=== PATIENT | female | born 1975 | race Caucasian/White ===

== ENCOUNTER 2016-07-29 07:39 | Emergency (ER) | payer SELFPAY ==
[~2016-07-29] VITALS: Ht 162.6 cm; Wt 101.0 kg
[~2016-07-29 07:39] MED LIST: HYDR12.56 PO; LISI-515 PO; NOVO7030P2 SQ
[2016-07-29 07:41] VITALS: BP 135/109; PULSE 123; RESP 18; TEMP 98.4; O2SAT 98
[2016-07-29] MEDS ORDERED: SODIUM CHLOR 0.9% 1000 ML INJ 1,000 ML IV ONE ×2 (07:53→08:23)
[2016-07-29 07:54] VITALS: RESP 17; O2SAT 99
--- NOTE | 2016-07-29 07:57 | PD ---
HPI Chief Complaint: Diabetic Time Seen by Provider: 07:47 Travel History International Travel<30 days: No Contact w/Intl Traveler<30days: No History of Present Illness HPI 40-year-old female arrives because her blood sugar 600 this morning. She was unable to work due to the high blood sugar. She noticed yesterday at about 2 PM her blood sugar was high. She self-administered insulin on 5 different occasions. The lowest blood glucose she obtained was 400. She has had urinary frequency/polyuria, nausea and shortness of breath which she states typically accompanies hyperglycemic episodes. She notes multiple coworkers are sick currently with URI type symptoms. PFSH Past Medical History Hx Anticoagulant Therapy: No Blood Disorders: No Heart Rhythm Problems: No Cardiac Catheterization: No Cardiovascular Problems: Yes High Cholesterol: No Chemotherapy: No Congestive Heart Failure: No Cerebrovascular Accident: No Diabetes: Yes Diminished Hearing: No Gastrointestinal Disorders: No Glaucoma: No Hypertension: Yes Insomnia: Yes Musculoskeletal: No Neurologic: No Psychiatric: No Respiratory: No Immunizations Current: Yes Radiation Therapy: No Sickle Cell Disease: No Thyroid Disease: Yes PNEUMOCCOCAL Vaccine (Year): 2 : 0 Para: 0 Past Surgical History Abdominal Surgery: No AICD: No Arteriovenous Shunt: No Cardiac Surgery: No Coronary Artery Bypass Graft: No Endocrine Surgery: No Eye Surgery: No Genitourinary Surgery: No Gynecologic Surgery: No Joint Replacement: No Neurologic Surgery: No Oral Surgery: Yes Pacemaker: No Thoracic Surgery: No Other Surgery: No Family History Family Hypercholesterolemia: Yes Social History Alcohol Use: No Tobacco Use: No (quit 7 years ago) Substance Use: No Allergies-Medications (Allergen,Severity, Reaction): Coded Allergies: No Known Allergies (Verified , 07/29/16) Reported Meds & Prescriptions Reported Meds & Active Scripts Active Bactrim DS (Sulfamethoxazole-Trimethoprim) 800-160 Mg Tab 1 Tab PO BID Lisinopril 20 Mg Tab 20 Mg PO BID Reported Novolin 70-30 Inj (Insulin Human Isoph/Insulin Regular) 1,000 Unit/10 Ml Vial 25 Units SQ BID Review of Systems Except as stated in HPI: all other systems reviewed are Neg General / Constitutional: No: Fever Physical Exam Narrative GENERAL: 40-year-old female well-nourished well-developed no acute distress SKIN: Focused skin assessment warm/dry. HEAD: Atraumatic. Normocephalic. EYES: Pupils equal and round. No scleral icterus. No injection or drainage. ENT: No nasal bleeding or discharge. Mucous membranes pink and moist. NECK: Trachea midline. No JVD. CARDIOVASCULAR: Tachycardia. Regular rhythm. RESPIRATORY: No accessory muscle use. Clear to auscultation. Breath sounds equal bilaterally. GASTROINTESTINAL: Large abdominal habitus. No focus of tenderness. MUSCULOSKELETAL: No obvious deformities. No clubbing. No cyanosis. No edema. NEUROLOGICAL: Awake and alert. No obvious cranial nerve deficits. Motor grossly within normal limits. Normal speech. PSYCHIATRIC: Appropriate mood and affect; insight and judgment normal. Data Data Last Documented VS Vital Signs Date Time Temp Pulse Resp B/P Pulse Ox O2 Delivery O2 Flow Rate FiO2 07/29/16 09:11 99 17 200/95 99 Room Air 07/29/16 07:41 98.4 Tachycardia noted Orders Complete Blood Count With Diff (07/29/16 07:53) Comprehensive Metabolic Panel (07/29/16 07:53) Beta Hydroxybutyrate (Acetone) (07/29/16 07:53) Urinalysis - C+S If Indicated (07/29/16 07:53) Blood Glucose (07/29/16 07:53) Blood Glucose (07/29/16 08:53) Ecg Monitoring (07/29/16 07:53) Iv Access Insert/Monitor (07/29/16 07:53) Oximetry (07/29/16 07:53) NPO (07/29/16 07:53) Sodium Chlor 0.9% 1000 Ml Inj (Ns 1000 M (07/29/16 07:53) Sodium Chlor 0.9% 1000 Ml Inj (Ns 1000 M (07/29/16 08:23) Sodium Chloride 0.9% Flush (Ns Flush) (07/29/16 08:00) Blood Glucose (07/29/16 07:53) Urine Culture (07/29/16 09:05) Potassium Chloride (Kcl) (07/29/16 10:00) Sulfamet-Trimeth Ds 800-160 Mg (Bactrim (07/29/16 10:00) Labs Laboratory Tests Test 07/29/16 07/29/16 08:00 09:05 White Blood Count 11.2 TH/MM3 Red Blood Count 5.45 MIL/MM3 Hemoglobin 16.2 GM/DL Hematocrit 46.3 % Mean Corpuscular Volume 85.0 FL Mean Corpuscular Hemoglobin 29.7 PG Mean Corpuscular Hemoglobin 34.9 % Concent Red Cell Distribution Width 13.7 % Platelet Count 241 TH/MM3 Mean Platelet Volume 10.8 FL Neutrophils (%) (Auto) 75.1 % Lymphocytes (%) (Auto) 16.3 % Monocytes (%) (Auto) 4.8 % Eosinophils (%) (Auto) 2.9 % Basophils (%) (Auto) 0.9 % Neutrophils # (Auto) 8.4 TH/MM3 Lymphocytes # (Auto) 1.8 TH/MM3 Monocytes # (Auto) 0.5 TH/MM3 Eosinophils # (Auto) 0.3 TH/MM3 Basophils # (Auto) 0.1 TH/MM3 CBC Comment DIFF FINAL Differential Comment Sodium Level 136 MEQ/L Potassium Level 3.3 MEQ/L Chloride Level 99 MEQ/L Carbon Dioxide Level 25.1 MEQ/L Anion Gap 12 MEQ/L Blood Urea Nitrogen 4 MG/DL Creatinine 0.69 MG/DL Estimat Glomerular Filtration 94 ML/MIN Rate Random Glucose 359 MG/DL Calcium Level 8.1 MG/DL Total Bilirubin 0.4 MG/DL Aspartate Amino Transf 8 U/L (AST/SGOT) Alanine Aminotransferase 18 U/L (ALT/SGPT) Alkaline Phosphatase 73 U/L Total Protein 6.9 GM/DL Albumin 3.4 GM/DL B-Hydroxybutyrate 0.40 MMOL/L Urine Color LIGHT-YELLOW Urine Turbidity HAZY Urine pH 6.5 Urine Specific [place] 1.009 Urine Protein TRACE mg/dL Urine Glucose (UA) 1000 mg/dL Urine Ketones TRACE mg/dL Urine Occult Blood NEG Urine Nitrite NEG Urine Bilirubin NEG Urine Urobilinogen LESS THAN 2.0 MG/DL Urine Leukocyte Esterase LARGE Urine RBC 2 /hpf Urine WBC 15 /hpf Urine Squamous Epithelial 4 /hpf Cells Urine Bacteria RARE /hpf Urine Yeast (Budding) FEW Microscopic Urinalysis Comment CULTURE INDICATED MDM Medical Decision Making Medical Screen Exam Complete: Yes Emergency Medical Condition: Yes Medical Record Reviewed: Yes Differential Diagnosis DKA, electrolyte imbalance, dehydration, urinary tract infection, hyperglycemia Narrative Course CBC & BMP Diagram 07/29/16 08:00 LFTs normal Beta hydroxybutyrate 0.4 UA: UTI present Blood sugar has improved to about 295. Patient states her blood sugar typically runs about 200. The patient has a UTI and we will provide antibiotics for that. Diagnosis Primary Impression: Hyperglycemia Additional Impressions: UTI (urinary tract infection) Qualified Code: N30.00 - Acute cystitis without hematuria Hypokalemia Referrals: Primary Care Physician Additional Instructions: You have a choice when it comes to health care, and we are glad that you chose [facility]. Hopefully, we have met your expectations on today's visit. You are welcome to return to [facility] at any time, as we are committed to meeting the health care needs of our community. Med/Other Pt SpecificInfo: Prescription(s) given Scripts Sulfamethoxazole-Trimethoprim (Bactrim DS)800-160 Mg Tab1 Tab PO BID #14 TAB Ref 0 Prov:Dillon Torres MD 07/29/16 Disposition: 01 DISCHARGE HOME Condition: Stable Dillon Torres MD Jul 29, 2016 07:57
[2016-07-29] MEDS ORDERED: SODIUM CHLORIDE 0.9% FLUSH 10 ML FLUSH IVF PRN (08:00)
[2016-07-29 08:25] LABS: AUTOMATED NEUTROPHIL # 8.4 TH/MM3 (1.8-7.7); BASOPHIL # 0.1 TH/MM3 (0-0.2); BASOPHIL % 0.9 % (0.0-2.0); EOSINOPHIL # 0.3 TH/MM3 (0-0.4); EOSINOPHIL % 2.9 % (0.0-4.0); HEMATOCRIT 46.3 % (35.0-46.0); HEMO FLAGS DIFF FINAL; LYMPH % 16.3 % (9.0-44.0); LYMPHOCYTE # 1.8 TH/MM3 (1.0-4.8); MEAN CORPUSCULAR HEMOGLOBIN 29.7 PG (27.0-34.0); MEAN CORPUSCULAR HGB CONC 34.9 % (32.0-36.0); MONO % 4.8 % (0.0-8.0); NEUT % 75.1 % (16.0-70.0); PLATELET COUNT 241 TH/MM3 (150-450); RED BLOOD COUNT 5.45 MIL/MM3 (4.00-5.30); RED CELL DISTRIBUTION WIDTH 13.7 % (11.6-17.2); WHITE BLOOD COUNT 11.2 TH/MM3 (4.0-11.0)
[2016-07-29 09:05] LABS: ANION GAP 12 MEQ/L (5-15); AST (GOT) 8 U/L (15-37); BICARBONATE 25.1 MEQ/L (21.0-32.0); BLOOD UREA NITROGEN 4 MG/DL (7-18); CHLORIDE 99 MEQ/L (98-107); GLOMERULAR FILTRATION RATE 94 ML/MIN (>89); POTASSIUM 3.3 MEQ/L (3.5-5.1); SODIUM (NA) 136 MEQ/L (136-145)
[2016-07-29 09:08] LABS: ALKALINE PHOSPHATASE 73 U/L (45-117); ALT (GPT) 18 U/L (10-53); TOTAL BILIRUBIN ADULT 0.4 MG/DL (0.2-1.0)
[2016-07-29 09:11] VITALS: BP 200/95; PULSE 99; RESP 17; O2SAT 99
[2016-07-29 09:39] LABS: BACTERIA, URINE RARE /hpf; BLOOD, URINE NEG (NEG); COMMENT (UR) CULTURE INDICATED; CULTURE IF INDICATED CULTURE INDICATED; GLUCOSE,URINE 1000 mg/dL (NEG); KETONE, URINE TRACE mg/dL (NEG); NITRITE,URINE NEG (NEG); PH, URINE 6.5 (5.0-8.5); SQUAMOUS EPITHELIAL CELL URINE 4 /hpf (0-5); URINE COLOR LIGHT-YELLOW (YELLW/STRAW)
[2016-07-29] MEDS ORDERED: BACT800T5 PO (09:47)
[2016-07-29 10:00] VITALS: BP 150/81; TEMP 97.8
[2016-07-29] MEDS ORDERED: POTASSIUM CHLORIDE 20 MEQ CONTROLLED RELEASE TAB PO ONE (10:00)
[2016-07-29] MEDS ORDERED: SULFAMETHOXAZOLE-TRIMETHOPRIM DS 800-160 MG TAB PO ONE (10:00)
== END 2016-07-29 10:20 | disposition home or self-care (01) ==
LOC: NEPC 07:39
DX: E11.65 Type 2 diabetes mellitus with hyperglycemia (principal); N30.00 Acute cystitis without hematuria; E87.6 Hypokalemia; R11.0 Nausea; R06.02 Shortness of breath; I10 Essential (primary) hypertension; Z79.4 Long term (current) use of insulin; Z87.891 Personal history of nicotine dependence; Z86.79 Personal history of other diseases of the circulatory system
CPT/HCPCS: 80053; 81001; 82010; 85025; 87086; 96360; 96361; 99284; J7030

== ENCOUNTER 2016-09-05 16:43 | Observation (INO) | payer SELFPAY ==
[2016-09-05] VITALS (9 sets, daily range): BP systolic 132–240; BP diastolic 63–130; PULSE 94–115; RESP 16–20; TEMP 98–98.7; O2SAT 95–100
[~2016-09-05] VITALS: Ht 162.6 cm; Wt 100.0 kg
[~2016-09-05 16:43] MED LIST changes: +BACT800T5 PO; -HYDR12.56 PO
[2016-09-05] MEDS ORDERED: ASPIRIN 81 MG CHEW TAB PO ONE (19:15)
[2016-09-05] MEDS ORDERED: SODIUM CHLORIDE 0.9% FLUSH 10 ML FLUSH IVF PRN (19:15)
--- NOTE | 2016-09-05 19:32 | RADRPT ---
EXAM DATE/TIME: 09/05/2016 19:30 [facility] COMPARISON: CHEST PA & LAT, April 10, 2015, 15:46. INDICATIONS : Chest pain. MEDICAL HISTORY : Cardiovascular disease. Hypertension. Diabetes mellitus type 2. SURGICAL HISTORY : None. ENCOUNTER: Initial ACUITY: 1 day PAIN SCORE: 6/10 LOCATION: Bilateral chest FINDINGS: PA and lateral views of the chest demonstrate the lungs to be symmetrically aerated without evidence of mass, infiltrate or effusion. The cardiomediastinal contours are unremarkable. Osseous structure s are intact. CONCLUSION: No acute disease. Dino Alegria MD on September 05, 2016 at 19:29 Board Certified Radiologist. This report was verified electronically.
[2016-09-05 19:39] LABS: AUTOMATED NEUTROPHIL # 8.3 TH/MM3 (1.8-7.7); BASOPHIL # 0.1 TH/MM3 (0-0.2); BASOPHIL % 0.7 % (0.0-2.0); EOSINOPHIL # 0.4 TH/MM3 (0-0.4); EOSINOPHIL % 3.3 % (0.0-4.0); HEMATOCRIT 45.8 % (35.0-46.0); HEMO FLAGS DIFF FINAL; LYMPH % 27.9 % (9.0-44.0); LYMPHOCYTE # 3.7 TH/MM3 (1.0-4.8); MEAN CORPUSCULAR HEMOGLOBIN 29.9 PG (27.0-34.0); MEAN CORPUSCULAR HGB CONC 35.1 % (32.0-36.0); MONO % 5.6 % (0.0-8.0); NEUT % 62.5 % (16.0-70.0); PLATELET COUNT 302 TH/MM3 (150-450); RED BLOOD COUNT 5.39 MIL/MM3 (4.00-5.30); RED CELL DISTRIBUTION WIDTH 13.3 % (11.6-17.2); WHITE BLOOD COUNT 13.3 TH/MM3 (4.0-11.0)
[2016-09-05 19:56] LABS: APTT (PATIENT) 23.4 SEC (24.3-30.1); PROTHROMBIN TIME - PATIENT 10.5 SEC (9.8-11.6)
[2016-09-05] MEDS: NITROGLYCERIN 0.4 MG SL 25 TABS/BTL SL SCH ×3 (20:09→20:31)
[2016-09-05 20:14] LABS: ALKALINE PHOSPHATASE 78 U/L (45-117); ALT (GPT) 20 U/L (10-53); ANION GAP 10 MEQ/L (5-15); AST (GOT) 14 U/L (15-37); BICARBONATE 30.7 MEQ/L (21.0-32.0); BLOOD UREA NITROGEN 5 MG/DL (7-18); CHLORIDE 95 MEQ/L (98-107); GLOMERULAR FILTRATION RATE 115 ML/MIN (>89); MAGNESIUM 1.7 MG/DL (1.5-2.5); SODIUM (NA) 136 MEQ/L (136-145); TOTAL BILIRUBIN ADULT 0.6 MG/DL (0.2-1.0)
[2016-09-05 20:15] LABS: CREATINE KINASE 49 U/L (26-192)
[2016-09-05 20:16] LABS: POTASSIUM 2.6 MEQ/L (3.5-5.1)
[2016-09-05] MEDS ORDERED: METOPROLOL TARTRATE 5 MG/5 ML VIAL IV PUSH STA (20:27)
[2016-09-05] MEDS ORDERED: POTASSIUM CHLOR 10 MEQ PREMIX 100 ML IV ONE (20:30)
[2016-09-05] MEDS ORDERED: POTASSIUM CHLORIDE 10 MEQ CONTROLLED RELEASE TAB PO ONE (20:30)
--- NOTE | 2016-09-05 20:45 | PD ---
HPI Chief Complaint: Chest Pain Time Seen by Provider: 19:02 Travel History International Travel<30 days: No Contact w/Intl Traveler<30days: No Traveled to known affect area: No History of Present Illness HPI Patient is a 40 year old female who comes in complaining of chest pain. She says it started last night and she feels like someone is squeezing her chest. She says her mother suggested she take an aspirin last night, so she did and went to sleep. When she woke up this morning, the pain was back. She denies any cough or cold. She says the pain is in the middle of her chest. She denies any SOB. She denies nausea or vomiting. She denies any leg swelling or calf pain. PFSH Past Medical History Hx Anticoagulant Therapy: No Blood Disorders: No Heart Rhythm Problems: No Cardiac Catheterization: No Cardiovascular Problems: Yes (HTN) High Cholesterol: No Chemotherapy: No Congestive Heart Failure: No Cerebrovascular Accident: No Diabetes: Yes Patient Takes Glucophage: No Diminished Hearing: No Gastrointestinal Disorders: No Glaucoma: No Hypertension: Yes Insomnia: Yes Musculoskeletal: No Neurologic: No Psychiatric: No Respiratory: No Immunizations Current: Yes Radiation Therapy: No Sickle Cell Disease: No Thyroid Disease: Yes PNEUMOCCOCAL Vaccine (Year): 2 ?: Not : 0 Para: 0 Past Surgical History Abdominal Surgery: No AICD: No Arteriovenous Shunt: No Cardiac Surgery: No Coronary Artery Bypass Graft: No Endocrine Surgery: No Eye Surgery: No Genitourinary Surgery: No Gynecologic Surgery: No Joint Replacement: No Neurologic Surgery: No Oral Surgery: Yes Pacemaker: No Thoracic Surgery: No Other Surgery: No Family History Family Myocardial Infarction: Yes (Dad) Family Hypercholesterolemia: Yes Social History Alcohol Use: No Tobacco Use: No (quit 7 years ago) Substance Use: No Allergies-Medications (Allergen,Severity, Reaction): Coded Allergies: No Known Allergies (Verified , 09/05/16) Reported Meds & Prescriptions Reported Meds & Active Scripts Active Bactrim DS (Sulfamethoxazole-Trimethoprim) 800-160 Mg Tab 1 Tab PO BID Lisinopril 20 Mg Tab 20 Mg PO BID Reported Novolin 70-30 Inj (Insulin Human Isoph/Insulin Regular) 1,000 Unit/10 Ml Vial 25 Units SQ BID Review of Systems Except as stated in HPI: all other systems reviewed are Neg General / Constitutional: No: Fever HENT: No: Headaches, Lightheadedness Cardiovascular: Positive: Chest Pain or Discomfort Respiratory: No: Cough, Shortness of Breath Gastrointestinal: No: Nausea, Vomiting Musculoskeletal: No: Edema, Pain Neurologic: No: Weakness, Dizziness Physical Exam Narrative GENERAL: Awake and alert, in no acute distress. SKIN: Focused skin assessment warm/dry. HEAD: Atraumatic. Normocephalic. EYES: Pupils equal and round. No scleral icterus. ENT: Mucous membranes pink and moist. NECK: Trachea midline. No JVD. CARDIOVASCULAR: Regular rate and rhythm. No murmur appreciated. RESPIRATORY: No accessory muscle use. Clear to auscultation. Breath sounds equal bilaterally. GASTROINTESTINAL: Abdomen soft, non-tender, nondistended. MUSCULOSKELETAL: No obvious deformities. No clubbing. No cyanosis. No edema. NEUROLOGICAL: Awake and alert. No obvious cranial nerve deficits. Motor grossly within normal limits. Normal speech. PSYCHIATRIC: Appropriate mood and affect; insight and judgment normal. Data Data Last Documented VS Vital Signs Date Time Temp Pulse Resp B/P Pulse Ox O2 Delivery O2 Flow Rate FiO2 09/05/16 20:30 107 20 190/87 96 Room Air 09/05/16 16:45 98.7 Orders Electrocardiogram (09/05/16 17:35) Ckmb (Isoenzyme) Profile (09/05/16 19:06) Complete Blood Count With Diff (09/05/16 19:06) Comprehensive Metabolic Panel (09/05/16 19:06) Magnesium (Mg) (09/05/16 19:06) Prothrombin Time / Inr (Pt) (09/05/16 19:06) Act Partial Throm Time (Ptt) (09/05/16 19:06) Troponin I (09/05/16 19:06) Ecg Monitoring (09/05/16 19:06) Bilateral Bp Monitoring (09/05/16 19:06) Iv Access Insert/Monitor (09/05/16 19:06) Oximetry (09/05/16 19:06) Oxygen Administration (09/05/16 19:06) Aspirin Chew (Aspirin Chew) (09/05/16 19:15) Sodium Chloride 0.9% Flush (Ns Flush) (09/05/16 19:15) Nitroglycerin Sl (Nitrostat Sl) (09/05/16 19:15) Chest, Pa & Lat (09/05/16 19:06) Ed Urine Pregnancytest Poc (09/05/16 19:06) Potassium Chloride (Kcl) (09/05/16 20:30) Potassium Chlor 10 Meq Premix (Kcl 10 Me (09/05/16 20:30) Metoprolol Tartrate Inj (Lopressor Inj) (09/05/16 20:27) Labs Laboratory Tests Test 09/05/16 19:10 White Blood Count 13.3 TH/MM3 Red Blood Count 5.39 MIL/MM3 Hemoglobin 16.1 GM/DL Hematocrit 45.8 % Mean Corpuscular Volume 85.0 FL Mean Corpuscular Hemoglobin 29.9 PG Mean Corpuscular Hemoglobin 35.1 % Concent Red Cell Distribution Width 13.3 % Platelet Count 302 TH/MM3 Mean Platelet Volume 10.0 FL Neutrophils (%) (Auto) 62.5 % Lymphocytes (%) (Auto) 27.9 % Monocytes (%) (Auto) 5.6 % Eosinophils (%) (Auto) 3.3 % Basophils (%) (Auto) 0.7 % Neutrophils # (Auto) 8.3 TH/MM3 Lymphocytes # (Auto) 3.7 TH/MM3 Monocytes # (Auto) 0.7 TH/MM3 Eosinophils # (Auto) 0.4 TH/MM3 Basophils # (Auto) 0.1 TH/MM3 CBC Comment DIFF FINAL Differential Comment Prothrombin Time 10.5 SEC Prothromb Time International 1.0 RATIO Ratio Activated Partial 23.4 SEC Thromboplast Time Sodium Level 136 MEQ/L Potassium Level 2.6 MEQ/L Chloride Level 95 MEQ/L Carbon Dioxide Level 30.7 MEQ/L Anion Gap 10 MEQ/L Blood Urea Nitrogen 5 MG/DL Creatinine 0.58 MG/DL Estimat Glomerular Filtration 115 ML/MIN Rate Random Glucose 274 MG/DL Calcium Level 8.7 MG/DL Magnesium Level 1.7 MG/DL Total Bilirubin 0.6 MG/DL Aspartate Amino Transf 14 U/L (AST/SGOT) Alanine Aminotransferase 20 U/L (ALT/SGPT) Alkaline Phosphatase 78 U/L Total Creatine Kinase 49 U/L Troponin I LESS THAN 0.02 NG/ML Total Protein 7.1 GM/DL Albumin 3.4 GM/DL MDM Medical Decision Making Medical Screen Exam Complete: Yes Emergency Medical Condition: Yes Medical Record Reviewed: Yes Interpretation(s) ECG shows sinus tachycardia, no ST elevation or depression. Differential Diagnosis ACS versus NSTEMI versus STEMI versus pneumonia versus pneumothorax Narrative Course Patient is a 40 year old female comes in complaining of chest pain. Exam shows no acute abnormalities. IV established, labs sent. Patient connected to sales coordinator. ECG shows sinus tachycardia, no evidence of STEMI. Labs show a potassium of 2.6, this was replaced. Patient given nitroglycerin with some improvement of her pain. Her blood pressure was elevated, she says she is due for her nighttime dose of lisinopril. Patient given a dose of metoprolol due to tachycardia and elevated blood pressure. We'll place an chest pain center for further management. Chest x-ray shows no acute abnormalities. Diagnosis Primary Impression: Chest pain Qualified Code: R07.9 - Chest pain, unspecified type Admitting Information Admitting Physician Requests: Ana Lemus MD September 05, 2016 20:45
[2016-09-05] MEDS ORDERED: ONDANSETRON HCL 4 MG/2 ML VIAL IV PRN (21:00)
[2016-09-05] MEDS ORDERED: ACETAMINOPHEN 500 MG CPLT PO PRN (21:00)
[2016-09-05] MEDS ORDERED: SODIUM CHLORIDE 0.9% FLUSH 10 ML FLUSH IV FLUSH PRN (21:00)
[2016-09-05] MEDS: SODIUM CHLORIDE 0.9% FLUSH 10 ML FLUSH IV FLUSH SCH (21:52)
[2016-09-05 22:59] LABS: ANION GAP 9 MEQ/L (5-15); BICARBONATE 32.1 MEQ/L (21.0-32.0); BLOOD UREA NITROGEN 6 MG/DL (7-18); CHLORIDE 95 MEQ/L (98-107); GLOMERULAR FILTRATION RATE 89 ML/MIN (>89); SODIUM (NA) 136 MEQ/L (136-145)
[2016-09-05 23:09] LABS: CREATINE KINASE 49 U/L (26-192)
[2016-09-06 02:31] LABS: CREATINE KINASE 46 U/L (26-192)
[2016-09-06 03:10] VITALS: BP 150/80; PULSE 86; RESP 16; O2SAT 96
[2016-09-06] MEDS ORDERED: POTASSIUM CHLORIDE 25 MEQ EFFERVESCENT TAB PO ONE ×2 (06:30→09:00)
[2016-09-06 07:24] VITALS: BP 132/82; PULSE 93; RESP 20; TEMP 98.4; O2SAT 94
[2016-09-06 08:00] VITALS: PULSE 104
[2016-09-06] MEDS: SODIUM CHLORIDE 0.9% FLUSH 10 ML FLUSH IV FLUSH SCH (09:00)
--- NOTE | 2016-09-06 10:38 | HHI.HP ---
HPI Primary Care Physician No Primary Care Physician Chief Complaint Chest pain History of Present Illness This is a 40-year-old female that presents to ED to evaluate chest discomfort. She describes a squeezing a left chest. It began 2 nights ago. She fell sleep with the discomfort and when she woke up yesterday the discomfort was still there. Currently she has no discomfort chest. Has a hard time stating how long it lasted yesterday. She had no associated shortness breath, nausea, or diaphoresis with her symptoms. Denies history of CAD but states she has hypertension diabetes. She was found to be hypokalemic in the ED and was given IV and by mouth potassium replacement. Last evening while in the chest pain center she went into 6 seconds of V. tach. This occurred while she was sleeping. She was asymptomatic at the time. It did not wake her. States that she is not . Denies recent illnesses. She has not been vomiting. There has been no diarrhea. Review of Systems General: Patient denies fevers, chills recent, and recent travel HEENT: Patient denies headache, sore throat, difficulty swallowing. Cardiovascular: Has the chest discomfort as mentioned above. Denies sensation of heart beating rapidly or irregularly. No syncope. Denies diaphoresis. Respiratory: Denies shortness of breath or inspirational chest discomfort. Denies coughing wheezing or hemoptysis. GI: Patient denies nausea, vomiting, diarrhea, abdominal pain, bloody stools. Musculoskeletal: Patient denies joint pain or edema. Denies calf pain or edema. Neurovascular: Patient denies numbness, tingling, weakness in extremities. Denies headache. Endocrine: Denies polyuria and polydipsia. Hematologic: Denies easy bruising. Skin: Denies rash or itching. Past Family Social History Allergies: Coded Allergies: No Known Allergies (Verified , 09/05/16) Past Medical History Hypertension and diabetes. Denies hyperlipidemia and known CAD. Past Surgical History Noncontributory. Reported Medications Reported Meds & Active Scripts Active Lisinopril 20 Mg Tab 20 Mg PO BID Reported Novolin 70-30 Inj (Insulin Human Isoph/Insulin Regular) 1,000 Unit/10 Ml Vial 25 Units SQ BID Active Ordered Medications Current Medications Medications (Trade) Dose Ordered Sig/Betito Route Start Time Stop Time Status Last Admin (NS Flush) 2 ml UNSCH PRN IVF 09/05/16 19:15 09/05/16 20:38 (NS Flush) 2 ml UNSCH PRN IV FLUSH 09/05/16 21:00 (NS Flush) 2 ml BID IV FLUSH 09/05/16 21:00 09/05/16 21:52 (Tylenol) 500 mg Q4H PRN PO 09/05/16 21:00 (Zofran Inj) 4 mg Q6H PRN IV 09/05/16 21:00 Family History States that her father had an SC. Social History Patient quit smoking 7 years ago. Denies alcohol or illicit drugs. Physical Exam Vital Signs Vital Signs Date Time Temp Pulse Resp B/P Pulse Ox O2 Delivery O2 Flow Rate FiO2 09/06/16 07:24 98.4 93 20 132/82 94 09/06/16 03:18 21 09/06/16 03:10 86 16 150/80 96 09/05/16 23:21 98.0 101 17 148/85 98 09/05/16 22:24 94 16 132/63 97 Room Air 09/05/16 20:40 97 155/65 09/05/16 20:30 107 20 190/87 96 Room Air 09/05/16 20:16 194/92 09/05/16 20:10 104 20 195/94 97 Room Air 09/05/16 19:20 20 100 Room Air 09/05/16 19:20 100 Room Air 09/05/16 17:33 115 189/117 96 09/05/16 16:45 98.7 114 20 240/130 95 Room Air Physical Exam GENERAL: This is a well-nourished, well-developed patient, in no apparent distress. Patient speaks in clear complete sentences. Patient is pleasant. HEENT: Head is atraumatic and normocephalic. Neck is supple without lymphadenopathy and trachea is midline. No JVD or carotid bruits. CARDIOVASCULAR: Regular rate and rhythm without murmurs, gallops, or rubs. RESPIRATORY: Clear to auscultation. Breath sounds equal bilaterally. No wheezes , rales, or rhonchi. Chest wall is nontender. No use of accessory muscles. GASTROINTESTINAL: Abdomen is nontender, nondistended. Abdomen soft. No obvious pulsatile mass or bruit. No CVA tenderness. Strong femoral pulses bilaterally. Normal bowel sounds in all quadrants. MUSCULOSKELETAL: Patient is moving upper and lower extremities freely. No calf tenderness or edema, no Homans sign. Strong pulses in upper and lower extremities. NEUROLOGICAL: Patient is alert and oriented. Cranial nerves 2-12 are grossly intact. No focal deficits and speech is clear. SKIN: No rash and turgor is normal. Laboratory Laboratory Tests Test 09/05/16 09/05/16 09/06/16 09/06/16 19:10 22:20 01:20 04:29 White Blood Count 13.3 Red Blood Count 5.39 Hemoglobin 16.1 Hematocrit 45.8 Mean Corpuscular Volume 85.0 Mean Corpuscular Hemoglobin 29.9 Mean Corpuscular Hemoglobin 35.1 Concent Red Cell Distribution Width 13.3 Platelet Count 302 Mean Platelet Volume 10.0 Neutrophils (%) (Auto) 62.5 Lymphocytes (%) (Auto) 27.9 Monocytes (%) (Auto) 5.6 Eosinophils (%) (Auto) 3.3 Basophils (%) (Auto) 0.7 Neutrophils # (Auto) 8.3 Lymphocytes # (Auto) 3.7 Monocytes # (Auto) 0.7 Eosinophils # (Auto) 0.4 Basophils # (Auto) 0.1 CBC Comment DIFF FINAL Differential Comment Prothrombin Time 10.5 Prothromb Time International 1.0 Ratio Activated Partial 23.4 Thromboplast Time Sodium Level 136 136 Potassium Level 2.6 3.0 3.0 Chloride Level 95 95 Carbon Dioxide Level 30.7 32.1 Anion Gap 10 9 Blood Urea Nitrogen 5 6 Creatinine 0.58 0.72 Estimat Glomerular Filtration 115 89 Rate Random Glucose 274 262 Calcium Level 8.7 8.0 Magnesium Level 1.7 Total Bilirubin 0.6 Aspartate Amino Transf 14 (AST/SGOT) Alanine Aminotransferase 20 (ALT/SGPT) Alkaline Phosphatase 78 Total Creatine Kinase 49 49 46 Troponin I LESS THAN 0.02 LESS THAN 0.02 LESS THAN 0.02 Total Protein 7.1 Albumin 3.4 Result Diagram: 09/05/16190909/06/16428 Imaging Last Impressions Chest X-Ray 09/05/161905 Signed Impressions: Service Date/Time: Monday, September 05, 2016 19:30 - CONCLUSION: No acute disease. Dino Alegria MD Course EKGs have sinus rhythm without significant ST segment depressions or elevations. On monitor she had 6 seconds of duration of ventricular tachycardia. She is asymptomatic and did not wake up during the event. Assessment and Plan Assessment and Plan * Chest pain: Patient has had serial cardiac enzymes and EKGs for ruling out purposes. She has been seen by Dr. Galvan of cardiology in the chest pain center. She will have a Lexiscan when her potassium improves. She will be discharged home if her Lexiscan is nonischemic. She should follow-up with local physician and we will work on getting her a blue card to follow-up with Dr. Carrie Terry at the [facility]. * Hypokalemia: Patient was given IV and by mouth supplementation in the ED. She was given another 25 mEq of potassium effervescent 2. Awaiting repeated metabolic panel. * Diabetes: Patient will have sliding scale coverage while the chest pain center and resume her insulin at home. She also should be on statin therapy prophylactically as she is diabetic. She should discuss with local physician. * Hypertension: Continue current medication. * Nonsustained ventricular tachycardia: This may be related to electrolyte imbalance also patient could have sleep apnea. She should have this evaluated on an outpatient basis. Patient is stable this time. She is agreeable to this plan. Sunil Ruff September 06, 2016 10:38
[2016-09-06 11:11] VITALS: BP 129/69; PULSE 90; RESP 20; TEMP 98.7; O2SAT 95
[2016-09-06 11:27] LABS: BICARBONATE 31.9 MEQ/L (21.0-32.0); POTASSIUM 3.6 MEQ/L (3.5-5.1)
[2016-09-06] MEDS ORDERED: REGADENOSON INJ 0.4 MG/5 ML SYR ONE (13:29)
[2016-09-06 14:35] VITALS: BP 135/90; PULSE 102; RESP 20; TEMP 98.1; O2SAT 96
--- NOTE | 2016-09-06 15:21 | RADRPT ---
EXAM DATE/TIME: 09/06/2016 12:46 [facility] COMPARISON: MYOCARDIAL PERF PHARM SPECT, GATED W/EF, January 14, 2015, 13:10. INDICATIONS : Substernal chest pain with dyspnea. Angina. DOSE: 34.8 mCi Tc99m Myoview at stress. 11.0 mCi Tc99m Myoview at rest. 0.4 mg Lexiscan STRESS SYMPTOMS: Heart racing. EJECTION FRACTION: 50% MEDICAL HISTORY : Hypertension. Diabetes mellitus type 2. SURGICAL HISTORY : None. ENCOUNTER: Initial ACUITY: 1 day PAIN SCALE: 5/10 LOCATION: Substernal chest TECHNIQUE: The patient underwent pharmacologic stress with infusion of prescribed dose. Continuous ECG tracing was monitored during stress. Gated SPECT imaging was performed after stress and conventional SPECT i maging was performed at rest. The examination was performed on a SPECT/CT scanner, both attenuation and non-corrected datasets were reviewed. FINDINGS: DISTRIBUTION: The maximum perfused segment at stress is in the anterior wall. PERFUSION STUDY: The pattern of perfusion at stress is within normal limits. GATED STUDY: There is intact wall motion and thickening without hypokinetic or dyskinetic segments. CONCLUSION: 1. Unremarkable myocardial perfusion scan. RISK CATEGORY: Low (<1% Annual Mortality Rate) Stevan Howard MD on September 06, 2016 at 15:18 Board Certified Radiologist. This report was verified electronically.
--- NOTE | 2016-09-06 15:37 | HHI.DCPOC ---
Discharge Care Plan Diagnosis: (1) Chest pain (2) Hypokalemia (3) V-tach (4) Hypertension (5) DM (diabetes mellitus) Goals to Promote Your Health * To prevent worsening of your condition and complications * To maintain your health at the optimal level Directions to Meet Your Goals Take your medications as prescribed Follow your dietary instruction Follow activity as directed Keep your appointments as scheduled Take your immunizations and boosters as scheduled If your symptoms worsen call your PCP, if no PCP go to Urgent Care Center or Emergency Room Smoking is Dangerous to Your Health. Avoid second hand smoke Call the 24-hour hour crisis hotline for domestic abuse at Sunil Ruff September 06, 2016 15:36
--- NOTE | 2016-09-06 17:21 | TR ---
Date Performed: 09/06/2016 Time Performed: 13:36:07 DOCTOR: Serenity Galvan DRUG LIST: CLINICAL HISTORY: REASON FOR TEST: REASON FOR ENDING: OBSERVATION: CONCLUSION: Lexiscan stress test was performed under standard four minute protocol. Radionuclid e was injected one minute prior to ending the test. No electrocardiographic abormalities were present to suggest ischemia. Nuclear imaging and interpretation are pending. COMMENTS:
--- NOTE | 2016-09-06 17:24 | EKG ---
Date Performed: 09/06/2016 Time Performed: 03:11:20 PTAGE: 40 years EKG: Sinus rhythm NORMAL ECG Since PREVIOUS TRACING , no significant change noted DOCTOR: Serenity Galvan Interpretating Date/Time 09/06/2016 17:23:51
--- NOTE | 2016-09-06 17:24 | EKG ---
Date Performed: 09/06/2016 Time Performed: 01:34:24 PTAGE: 40 years EKG: Sinus rhythm POSSIBLE LEFT ATRIAL ENLARGEMENT BORDERLINE ECG Since PREVIOUS TRACING , no significant change noted PREVIOUS TRACIN09/05/2016 21.54 DOCTOR: Serenity Galvan Interpretating Date/Time 09/06/2016 17:24:12
--- NOTE | 2016-09-06 17:27 | EKG ---
Date Performed: 09/05/2016 Time Performed: 21:54:45 PTAGE: 40 years EKG: Sinus rhythm NORMAL ECG Since PREVIOUS TRACING , no significant change noted PREVIOUS TRACIN09/05/2016 17.41 DOCTOR: Serenity Galvan Interpretating Date/Time 09/06/2016 17:26:25
--- NOTE | 2016-09-06 17:32 | EKG ---
Date Performed: 09/05/2016 Time Performed: 17:41:26 PTAGE: 40 years EKG: SINUS TACHYCARDIA ABNORMAL RHYTHM ECG Since PREVIOUS TRACING , no significant change noted PREVIOUS TRACIN03/11/2016 14.56 DOCTOR: Serenity Galvan Interpretating Date/Time 09/06/2016 17:30:46
== END 2016-09-06 16:26 | disposition home or self-care (01) ==
LOC: NEPC 16:43 → NEDA 20:56 → NEPHCDU 23:04
PROVIDERS: ADMIT Internal Medicine Cardiovascular Disease; ATTEND Internal Medicine Cardiovascular Disease
DX: R07.89 Other chest pain (principal); I47.2 Ventricular tachycardia; E87.6 Hypokalemia; I10 Essential (primary) hypertension; E11.9 Type 2 diabetes mellitus without complications; E07.9 Disorder of thyroid, unspecified; Z79.4 Long term (current) use of insulin; Z87.891 Personal history of nicotine dependence
CPT/HCPCS: 71020; 78452; 80048; 80053; 82550; 83735; 84132; 84484; 84703; 85025; 85610; 85730; 93005; 93017; 96374; 99285; A9502; G0378; J2785; J3480

== ENCOUNTER 2017-02-05 20:08 | Emergency (ER) | payer SELFPAY ==
[~2017-02-05] VITALS: Ht 162.6 cm; Wt 100.0 kg
[~2017-02-05 20:08] MED LIST changes: -BACT800T5 PO
[2017-02-05 20:10] VITALS: BP 246/115; PULSE 111; RESP 16; TEMP 99.3; O2SAT 98
[2017-02-05] MEDS ORDERED: hydrALAZINE HCL 20 MG/ML VIAL IV PUSH ONE (20:45)
[2017-02-05] MEDS ORDERED: SODIUM CHLORIDE 0.9% FLUSH 10 ML FLUSH IVF PRN (20:45)
[2017-02-05] MEDS ORDERED: ONDANSETRON HCL 4 MG/2 ML VIAL IVP ONE (20:45)
[2017-02-05] MEDS ORDERED: MORPHINE SULFATE 4 MG/ML INJ IV PUSH ONE (20:45)
--- NOTE | 2017-02-05 20:48 | PD ---
HPI Chief Complaint: Hypertension Time Seen by Provider: 20:40 Travel History International Travel<30 days: No Contact w/Intl Traveler<30days: No Traveled to known affect area: No History of Present Illness HPI FOR PAST 2-3 DAYS HAS HAD GENERALIZED CM, 7/10, SOME ASSOC NAUSEA, AND HAS NOTED ELEVATED BP, WITH SYSTOLIC IN THE 200'S LIKE TODAY. PATIENT DENIES ANY LATERALIZING WEAKNESS, VISUAL DISTURBANCES OR PARESTHESIAS. ALL:NONE PMHX: DM AND HTN (ONLY ON NOVOLIN AND LISINOPRIL) NO PSHX PFSH Past Medical History Hx Anticoagulant Therapy: No Blood Disorders: No Heart Rhythm Problems: No Cardiac Catheterization: No Cardiovascular Problems: Yes High Cholesterol: No Chemotherapy: No Congestive Heart Failure: No Cerebrovascular Accident: No Diabetes: Yes Diminished Hearing: No Gastrointestinal Disorders: No Glaucoma: No Hypertension: Yes Insomnia: Yes Musculoskeletal: No Neurologic: No Psychiatric: No Respiratory: No Immunizations Current: Yes Radiation Therapy: No Sickle Cell Disease: No Thyroid Disease: Yes PNEUMOCCOCAL Vaccine (Year): 2 : 0 Para: 0 Past Surgical History Abdominal Surgery: No AICD: No Arteriovenous Shunt: No Cardiac Surgery: No Coronary Artery Bypass Graft: No Endocrine Surgery: No Eye Surgery: No Genitourinary Surgery: No Gynecologic Surgery: No Joint Replacement: No Neurologic Surgery: No Oral Surgery: Yes Pacemaker: No Thoracic Surgery: No Other Surgery: No Family History Family Hypercholesterolemia: Yes Social History Alcohol Use: No Tobacco Use: No (quit 7 years ago) Substance Use: No Allergies-Medications (Allergen,Severity, Reaction): Coded Allergies: No Known Allergies (Verified , 02/05/17) Reported Meds & Prescriptions Reported Meds & Active Scripts Active Lisinopril 20 Mg Tab 20 Mg PO BID Reported Novolin 70-30 Inj (Insulin Human Isoph/Insulin Regular) 1,000 Unit/10 Ml Vial 25 Units SQ BID Review of Systems Except as stated in HPI: all other systems reviewed are Neg HENT: Positive: Headaches Physical Exam Narrative GENERAL: SKIN: Warm and dry. HEAD: Atraumatic. Normocephalic. EYES: Pupils equal and round. No scleral icterus. No injection or drainage. ENT: No nasal bleeding or discharge. Mucous membranes pink and moist. NECK: Trachea midline. No JVD. CARDIOVASCULAR: Regular rate and rhythm. RESPIRATORY: No accessory muscle use. Clear to auscultation. Breath sounds equal bilaterally. GASTROINTESTINAL: Abdomen soft, non-tender, nondistended. MUSCULOSKELETAL: Extremities without clubbing, cyanosis, or edema. No obvious deformities. NEUROLOGICAL: Awake and alert. No obvious cranial nerve deficits. Motor grossly within normal limits. Five out of 5 muscle strength in the arms and legs. Normal speech. PSYCHIATRIC: Appropriate mood and affect; insight and judgment normal. Data Data Last Documented VS Vital Signs Date Time Temp Pulse Resp B/P (MAP) Pulse Ox O2 Delivery O2 Flow Rate FiO2 02/05/17 21:40 16 02/05/17 21:38 97 02/05/17 20:10 99.3 111 Room Air Orders Orders Complete Blood Count With Diff (02/05/17 20:40) Basic Metabolic Panel (Bmp) (02/05/17 20:40) Ct Brain W/O Iv Contrast(Rout) (02/05/17 20:40) Ecg Monitoring (02/05/17 20:40) Iv Access Insert/Monitor (02/05/17 20:40) Oximetry (02/05/17 20:40) Sodium Chloride 0.9% Flush (Ns Flush) (02/05/17 20:45) Ondansetron Inj (Zofran Inj) (02/05/17 20:45) Hydralazine Inj (Apresoline Inj) (02/05/17 20:45) Morphine Inj (Morphine Inj) (02/05/17 20:45) Urinalysis - C+S If Indicated (02/05/17 20:40) Ed Urine Pregnancytest Poc (02/05/17 20:40) Drug Screen, Random Urine (02/05/17 20:40) Potassium Chloride (Kcl) (02/05/17 22:00) Labs Laboratory Tests Test 02/05/17 21:00 02/05/17 21:05 White Blood Count 11.8 TH/MM3 Red Blood Count 5.45 MIL/MM3 Hemoglobin 16.5 GM/DL Hematocrit 47.5 % Mean Corpuscular Volume 87.2 FL Mean Corpuscular Hemoglobin 30.3 PG Mean Corpuscular Hemoglobin Concent 34.7 % Red Cell Distribution Width 13.5 % Platelet Count 253 TH/MM3 Mean Platelet Volume 11.1 FL Neutrophils (%) (Auto) 60.3 % Lymphocytes (%) (Auto) 29.8 % Monocytes (%) (Auto) 5.6 % Eosinophils (%) (Auto) 3.6 % Basophils (%) (Auto) 0.7 % Neutrophils # (Auto) 7.1 TH/MM3 Lymphocytes # (Auto) 3.5 TH/MM3 Monocytes # (Auto) 0.7 TH/MM3 Eosinophils # (Auto) 0.4 TH/MM3 Basophils # (Auto) 0.1 TH/MM3 CBC Comment DIFF FINAL Differential Comment Blood Urea Nitrogen 5 MG/DL Creatinine 0.75 MG/DL Random Glucose 339 MG/DL Calcium Level 8.9 MG/DL Sodium Level 134 MEQ/L Potassium Level 2.7 MEQ/L Chloride Level 95 MEQ/L Carbon Dioxide Level 22.5 MEQ/L Anion Gap 17 MEQ/L Estimat Glomerular Filtration Rate 85 ML/MIN Urine Color COLORLESS Urine Turbidity CLEAR Urine pH 6.0 Urine Specific [place] 1.008 Urine Protein NEG mg/dL Urine Glucose (UA) 1000 mg/dL Urine Ketones TRACE mg/dL Urine Occult Blood NEG Urine Nitrite NEG Urine Bilirubin NEG Urine Urobilinogen LESS THAN 2.0 MG/DL Urine Leukocyte Esterase NEG Urine RBC 1 /hpf Urine WBC 1 /hpf Urine Squamous Epithelial Cells 1 /hpf Urine Bacteria RARE /hpf Microscopic Urinalysis Comment CULT NOT INDICATED Urine Opiates Screen NEG Urine Barbiturates Screen NEG Urine Amphetamines Screen NEG Urine Benzodiazepines Screen NEG Urine Cocaine Screen NEG Urine Cannabinoids Screen NEG MDM Medical Decision Making Medical Screen Exam Complete: Yes Emergency Medical Condition: Yes Medical Record Reviewed: Yes Differential Diagnosis ICH FROM HYPERTENSIVE EMERGENCY V HYPERTENSIVE ENCEPHALOPATHY V TENSION CM Narrative Course NO E/O UTI, NORMAL ELECTROLYTE EXCEPT FOR HYPERGLYCEMIA AND HYPOKALEMIA WHICH IS DUE TO INSULIN USE. PATIENT'S PAIN FREE, BP IS GREATLY IMPROVING DECREASING TO SBP 177, CT HEAD NEG FOR ICH Critical Care Narrative CRITICAL CARE NOTE: With evaluation of the patient, receipt of radiologic studies, administration of medications, reevaluation the patient and discussion of the patient with the PATIENT AND FAMILY TO CONTROL HER BLOOD PRESSURE, the total critical care time was [30] minutes. Time to perform other separately billable procedures was not included in the critical care time. Diagnosis Primary Impression: HEADACHE Additional Impressions: HYPERTENSIVE URGENCY HYPOKALEMIA Referrals: [facility] FOR FURTHER FOLLOWUP Patient Instructions: General Instructions, Tension Headache (ED) Scripts Hyvohrqakd-Sfzqtuhxwahdv-Exfjsaqs (Fioricet) 50-300-40 Mg Cap 1-2 CAP PO Q6H Y for HEADACHE, #20 CAP 0 Refills Prov: Dennis Roberts MD 02/05/17 Amlodipine (Amlodipine) 5 Mg Tab 5 MG PO DAILY for Blood Pressure Management, #30 TAB 2 Refills Prov: Dennis Roberts MD 02/05/17 Disposition: 01 DISCHARGE HOME Condition: Stable Dennis Roberts MD Feb 05, 2017 20:48
[2017-02-05 21:38] VITALS: O2SAT 97
[2017-02-05 21:40] VITALS: RESP 16
--- NOTE | 2017-02-05 21:42 | RADRPT ---
EXAM DATE/TIME: 02/05/2017 21:07 [facility] COMPARISON: CT BRAIN W/O CONTRAST, March 11, 2016, 15:30. INDICATIONS : Cephalgia with elevated blood pressure. RADIATION DOSE: 37.23 CTDIvol (mGy) MEDICAL HISTORY : Cardiovascular disease. Hypertension. Diabetes mellitus type 2. SURGICAL HISTORY : None. ENCOUNTER: Initial ACUITY: 1 day PAIN SCALE: 3/10 LOCATION: cranial TECHNIQUE: Multiple contiguous axial images were obtained of the head. Using automated exposure control and adj ustment of the mA and/or kV according to patient size, radiation dose was kept as low as reasonably a chievable to obtain optimal diagnostic quality images. DICOM format image data is available electro nically for review and comparison. FINDINGS: CEREBRUM: The ventricles are normal for age. No evidence of midline shift, mass lesion, hemorrhage or acute in farction. No extra-axial fluid collections are seen. POSTERIOR FOSSA: The cerebellum and brainstem are intact. The 4th ventricle is midline. The cerebellopontine angle i s unremarkable. EXTRACRANIAL: The visualized portion of the orbits is intact. SKULL: The calvaria is intact. No evidence of skull fracture. CONCLUSION: No acute disease. Stefan Soriano MD on February 05, 2017 at 21:40 Board Certified Radiologist. This report was verified electronically.
[2017-02-05 21:46] LABS: BICARBONATE 22.5 MEQ/L (21.0-32.0)
[2017-02-05 21:47] LABS: AUTOMATED NEUTROPHIL # 7.1 TH/MM3 (1.8-7.7); BASOPHIL # 0.1 TH/MM3 (0-0.2); BASOPHIL % 0.7 % (0.0-2.0); EOSINOPHIL # 0.4 TH/MM3 (0-0.4); EOSINOPHIL % 3.6 % (0.0-4.0); HEMATOCRIT 47.5 % (35.0-46.0); HEMO FLAGS DIFF FINAL; LYMPH % 29.8 % (9.0-44.0); LYMPHOCYTE # 3.5 TH/MM3 (1.0-4.8); MEAN CELL VOLUME 87.2 FL (80.0-100.0); MEAN CORPUSCULAR HEMOGLOBIN 30.3 PG (27.0-34.0); MEAN CORPUSCULAR HGB CONC 34.7 % (32.0-36.0); MONO % 5.6 % (0.0-8.0); NEUT % 60.3 % (16.0-70.0); PLATELET COUNT 253 TH/MM3 (150-450); POTASSIUM 2.7 MEQ/L (3.5-5.1); RED BLOOD COUNT 5.45 MIL/MM3 (4.00-5.30); RED CELL DISTRIBUTION WIDTH 13.5 % (11.6-17.2); WHITE BLOOD COUNT 11.8 TH/MM3 (4.0-11.0)
[2017-02-05 21:50] LABS: BACTERIA, URINE RARE /hpf; BLOOD, URINE NEG (NEG); COMMENT (UR) CULT NOT INDICATED; CULTURE IF INDICATED CULT NOT INDICATED; GLUCOSE,URINE 1000 mg/dL (NEG); KETONE, URINE TRACE mg/dL (NEG); NITRITE,URINE NEG (NEG); SQUAMOUS EPITHELIAL CELL URINE 1 /hpf (0-5); URINE COLOR COLORLESS (YELLW/STRAW)
[2017-02-05] MEDS ORDERED: POTASSIUM CHLORIDE 10 MEQ CONTROLLED RELEASE TAB PO ONE (22:00)
[2017-02-05] MEDS ORDERED: AMLO5TAB2 PO (23:06)
[2017-02-05] MEDS ORDERED: BUTA1CAP PO (23:06)
[2017-02-05] MEDS ORDERED: POTA-163 PO (23:10)
[2017-02-05 23:22] VITALS: BP 163/74
== END 2017-02-06 00:16 | disposition home or self-care (01) ==
LOC: NEPC 20:08
DX: I16.0 Hypertensive urgency (principal); E87.6 Hypokalemia; R51 Headache; E11.65 Type 2 diabetes mellitus with hyperglycemia; Z79.4 Long term (current) use of insulin; Z79.899 Other long term (current) drug therapy; Z87.891 Personal history of nicotine dependence
CPT/HCPCS: 70450; 80048; 80307; 81001; 84703; 85025; 96374; 96375; 99291; J0360; J2270; J2405

== ENCOUNTER 2017-06-15 08:27 | Emergency (ER) | payer SELFPAY ==
[~2017-06-15] VITALS: Ht 162.6 cm; Wt 90.0 kg
[~2017-06-15 08:27] MED LIST changes: +AMLO5TAB2 PO; +BUTA1CAP PO; +POTA-163 PO
[2017-06-15 08:29] VITALS: BP 202/124; PULSE 143; RESP 18; TEMP 98.3; O2SAT 95
--- NOTE | 2017-06-15 09:16 | PD ---
HPI Chief Complaint: Cold / Flu Symptoms Time Seen by Provider: 09:16 Travel History International Travel<30 days: No Contact w/Intl Traveler<30days: No Traveled to known affect area: No History of Present Illness HPI 41-year-old female came to the emergency room with history of fever, sore throat , body aches, cough, nausea and vomiting since yesterday. She says the entire household has been sick with similar symptoms. She did not receive her flu shot. Patient was tachycardic upon arrival in triage. Her heart rate was in 140s. She is a diabetic and did not take any of her medications this morning when she decided to come to the emergency room. Her blood sugar was 350 bedside. She is awake and answering questions appropriately. Rest of the vital signs are within acceptable limits. [facility] Past Medical History Narrative Medical List of her past medical, surgical, social and family history is reviewed from the nursing note. Hx Anticoagulant Therapy: No Blood Disorders: No Heart Rhythm Problems: No Cardiac Catheterization: No Cardiovascular Problems: Yes High Cholesterol: No Chemotherapy: No Congestive Heart Failure: No Cerebrovascular Accident: No Diabetes: Yes Diminished Hearing: No Gastrointestinal Disorders: No Glaucoma: No Hypertension: Yes Insomnia: Yes Musculoskeletal: No Neurologic: No Psychiatric: No Respiratory: No Immunizations Current: Yes Radiation Therapy: No Sickle Cell Disease: No Thyroid Disease: Yes PNEUMOCCOCAL Vaccine (Year): 2 ?: Not LMP: 05/13/17 : 0 Para: 0 Past Surgical History Abdominal Surgery: No AICD: No Arteriovenous Shunt: No Cardiac Surgery: No Coronary Artery Bypass Graft: No Endocrine Surgery: No Eye Surgery: No Genitourinary Surgery: No Gynecologic Surgery: No Joint Replacement: No Neurologic Surgery: No Oral Surgery: Yes Pacemaker: No Thoracic Surgery: No Other Surgery: No Family History Family Hypercholesterolemia: Yes Social History Alcohol Use: No Tobacco Use: No (quit 7 years ago) Substance Use: No Allergies-Medications (Allergen,Severity, Reaction): Coded Allergies: No Known Allergies (Verified Allergy, Unknown, 06/19/17) Comments No known drug allergies Reported Meds & Prescriptions Reported Meds & Active Scripts Active Amoxicillin 875 Mg Tab 875 Mg PO BID 10 Days Amlodipine (Amlodipine Besylate) 5 Mg Tab 5 Mg PO DAILY Potassium Chloride ER (Potassium Chloride) 20 Meq Tab 20 Meq PO DAILY Fioricet (Hiwhnppouq-Imnwhvteeyhhg-Ebektuox) 50-300-40 Mg Cap 1-2 Cap PO Q6H PRN Amlodipine (Amlodipine Besylate) 5 Mg Tab 5 Mg PO DAILY Lisinopril 20 Mg Tab 20 Mg PO BID Reported Novolin 70-30 Inj (Insulin Human Isoph/Insulin Regular) 1,000 Unit/10 Ml Vial 25 Units SQ BID Narrative Medication List of her allergies reviewed from the nursing note. Review of Systems Except as stated in HPI: all other systems reviewed are Neg General / Constitutional: Positive: Fever, Chills HENT: Positive: Sore Throat Respiratory: Positive: Cough Gastrointestinal: Positive: Nausea, Vomiting Physical Exam Narrative GENERAL: Awake, alert, mild distress SKIN: Focused skin assessment warm/dry. Poor dentition HEAD: Atraumatic. Normocephalic. EYES: Pupils equal and round. No scleral icterus. No injection or drainage. ENT: No nasal bleeding or discharge. Dry mucous membrane, erythematous pharynx NECK: Trachea midline. No JVD. CARDIOVASCULAR: Regular rate and rhythm. No murmur appreciated. RESPIRATORY: No accessory muscle use. Clear to auscultation. Breath sounds equal bilaterally. GASTROINTESTINAL: Abdomen soft, non-tender, nondistended. Hepatic and splenic margins not palpable. MUSCULOSKELETAL: No obvious deformities. No clubbing. No cyanosis. No edema. NEUROLOGICAL: Awake and alert. No obvious cranial nerve deficits. Motor grossly within normal limits. Normal speech. PSYCHIATRIC: Appropriate mood and affect; insight and judgment normal. Data Data Last Documented VS Orders Orders Sepsis Workup Initiated (06/15/17 ) Complete Blood Count With Diff (06/15/17 09:20) Comprehensive Metabolic Panel (06/15/17 09:20) Lactic Acid Sepsis Protocol (06/15/17 09:20) Urinalysis - C+S If Indicated (06/15/17 09:20) Influenzae A/B Antigen (06/15/17 09:20) Blood Culture (06/15/17 09:20) Chest, Single Ap (06/15/17 09:20) Blood Glucose (06/15/17 09:20) Ecg Monitoring (06/15/17 09:20) Iv Access Insert/Monitor (06/15/17 09:20) Oximetry (06/15/17 09:20) Oxygen Administration (06/15/17 09:20) Sodium Chlor 0.9% 1000 Ml Inj (Ns 1000 M (06/15/17 09:20) Sodium Chlor 0.9% 1000 Ml Inj (Ns 1000 M (06/15/17 09:20) Sodium Chlor 0.9% 1000 Ml Inj (Ns 1000 M (06/15/17 09:20) Group A Rapid Strep Screen (06/15/17 09:20) Strep Culture (Group A) (06/15/17 09:25) Blood Glucose (06/15/17 11:33) Urine Culture (06/15/17 12:46) Labs Laboratory Tests Test 06/15/17 09:25 06/15/17 12:46 White Blood Count 16.2 TH/MM3 Red Blood Count 5.61 MIL/MM3 Hemoglobin 16.6 GM/DL Hematocrit 48.8 % Mean Corpuscular Volume 87.1 FL Mean Corpuscular Hemoglobin 29.6 PG Mean Corpuscular Hemoglobin Concent 34.0 % Red Cell Distribution Width 13.7 % Platelet Count 256 TH/MM3 Mean Platelet Volume 10.5 FL Neutrophils (%) (Auto) 76.3 % Lymphocytes (%) (Auto) 15.5 % Monocytes (%) (Auto) 4.6 % Eosinophils (%) (Auto) 2.9 % Basophils (%) (Auto) 0.7 % Neutrophils # (Auto) 12.3 TH/MM3 Lymphocytes # (Auto) 2.5 TH/MM3 Monocytes # (Auto) 0.7 TH/MM3 Eosinophils # (Auto) 0.5 TH/MM3 Basophils # (Auto) 0.1 TH/MM3 CBC Comment DIFF FINAL Differential Comment Blood Urea Nitrogen 5 MG/DL Creatinine 0.53 MG/DL Random Glucose 319 MG/DL Total Protein 7.0 GM/DL Albumin 3.2 GM/DL Calcium Level 8.5 MG/DL Alkaline Phosphatase 87 U/L Aspartate Amino Transf (AST/SGOT) 7 U/L Alanine Aminotransferase (ALT/SGPT) 12 U/L Total Bilirubin 0.4 MG/DL Sodium Level 136 MEQ/L Potassium Level 3.5 MEQ/L Chloride Level 101 MEQ/L Carbon Dioxide Level 28.9 MEQ/L Anion Gap 6 MEQ/L Estimat Glomerular Filtration Rate 127 ML/MIN Lactic Acid Level 1.2 mmol/L Urine Color YELLOW Urine Turbidity HAZY Urine pH 5.5 Urine Specific [place] 1.018 Urine Protein TRACE mg/dL Urine Glucose (UA) 1000 mg/dL Urine Ketones NEG mg/dL Urine Occult Blood NEG Urine Nitrite NEG Urine Bilirubin NEG Urine Urobilinogen LESS THAN 2.0 MG/DL Urine Leukocyte Esterase LARGE Urine RBC 2 /hpf Urine WBC 18 /hpf Urine Squamous Epithelial Cells 10 /hpf Urine Transitional Epithelial Cells <1 /hpf Urine Bacteria RARE /hpf Urine Mucus FEW /lpf Microscopic Urinalysis Comment CATH-CULTURE IND MDM Medical Decision Making Medical Screen Exam Complete: Yes Emergency Medical Condition: Yes Medical Record Reviewed: Yes Differential Diagnosis Influenza, strep throat, UTI, pneumonia, viral illness Narrative Course 12:47 PM patient was approached as a sepsis given her heart rate. She is receiving 3 L of IV fluid bolus. Her blood sugar came down to 270s. Patient does have some leukocytosis but lactic acid is negative. Chest x-rays negative. Rapid strep was negative. Awaiting for UA. I will eventually discharge her home. Patient is not in DKA. Anion gap and bicarbonate is within normal limits. Procedures EKG Prior to Arrival: No Diagnosis Primary Impression: Hyperglycemia Additional Impressions: Dehydration Viral illness Disposition: 01 DISCHARGE HOME Condition: Stable Genny Carl MD Jun 15, 2017 09:16
[2017-06-15 09:18] VITALS: BP 192/94; PULSE 114; RESP 18
[2017-06-15] MEDS ORDERED: SODIUM CHLOR 0.9% 1000 ML INJ 700 ML IV ONE (09:20)
[2017-06-15] MEDS ORDERED: SODIUM CHLOR 0.9% 1000 ML INJ 1,000 ML IV ONE ×2 (09:20)
[2017-06-15 09:24] VITALS: RESP 18; O2SAT 98
[2017-06-15 10:19] LABS: AUTOMATED NEUTROPHIL # 12.3 TH/MM3 (1.8-7.7); BASOPHIL # 0.1 TH/MM3 (0-0.2); BASOPHIL % 0.7 % (0.0-2.0); EOSINOPHIL # 0.5 TH/MM3 (0-0.4); EOSINOPHIL % 2.9 % (0.0-4.0); HEMATOCRIT 48.8 % (35.0-46.0); HEMOGLOBIN 16.6 GM/DL (11.6-15.3); LYMPH % 15.5 % (9.0-44.0); LYMPHOCYTE # 2.5 TH/MM3 (1.0-4.8); MEAN CELL VOLUME 87.1 FL (80.0-100.0); MEAN CORPUSCULAR HEMOGLOBIN 29.6 PG (27.0-34.0); MEAN PLATELET VOLUME 10.5 FL (7.0-11.0); MONO % 4.6 % (0.0-8.0); MONOCYTE # 0.7 TH/MM3 (0-0.9); NEUT % 76.3 % (16.0-70.0); PLATELET COUNT 256 TH/MM3 (150-450); RED BLOOD COUNT 5.61 MIL/MM3 (4.00-5.30); RED CELL DISTRIBUTION WIDTH 13.7 % (11.6-17.2); WHITE BLOOD COUNT 16.2 TH/MM3 (4.0-11.0)
[2017-06-15 10:24] LABS: ALBUMIN 3.2 GM/DL (3.4-5.0); AST (GOT) 7 U/L (15-37); BICARBONATE 28.9 MEQ/L (21.0-32.0); BLOOD UREA NITROGEN 5 MG/DL (7-18); CALCIUM 8.5 MG/DL (8.5-10.1); CHLORIDE 101 MEQ/L (98-107); CREATININE 0.53 MG/DL (0.50-1.00); GLOMERULAR FILTRATION RATE 127 ML/MIN (>89); GLUCOSE,RANDOM 319 MG/DL (74-106); SODIUM (NA) 136 MEQ/L (136-145)
[2017-06-15 10:29] LABS: ALKALINE PHOSPHATASE 87 U/L (45-117); ALT (GPT) 12 U/L (10-53); TOTAL BILIRUBIN ADULT 0.4 MG/DL (0.2-1.0)
--- NOTE | 2017-06-15 10:30 | RADRPT ---
EXAM DATE/TIME: 06/15/2017 09:50 [facility] COMPARISON: CHEST SINGLE AP, January 14, 2015, 4:34. INDICATIONS : Shortness of breath. MEDICAL HISTORY : Diabetes mellitus type II. Hypertension SURGICAL HISTORY : None. ENCOUNTER: Initial ACUITY: 2 days PAIN SCORE: 0/10 LOCATION: Bilateral chest FINDINGS: A single view of the chest demonstrates the lungs to be symmetrically aerated without evidence of mas s, infiltrate or effusion. The cardiomediastinal contours are unremarkable. Osseous structures are intact. CONCLUSION: The lungs are clear. Shantanu Campos MD on June 15, 2017 at 10:28 Board Certified Radiologist. This report was verified electronically.
[2017-06-15 13:13] LABS: BACTERIA, URINE RARE /hpf; BILIRUBIN, URINE NEG (NEG); BLOOD, URINE NEG (NEG); GLUCOSE,URINE 1000 mg/dL (NEG); KETONE, URINE NEG (NEG); MUCUS URINE FEW /lpf (OCC); NITRITE,URINE NEG (NEG); PH, URINE 5.5 (5.0-8.5); SQUAMOUS EPITHELIAL CELL URINE 10 /hpf (0-5); TRANSITIONAL EPI CELLS, URINE <1 /hpf; URINE COLOR YELLOW (YELLW/STRAW); URINE LEUKOCYTE ESTERASE LARGE (NEG)
== END 2017-06-15 13:23 | disposition home or self-care (01) ==
LOC: NEPE 08:27
DX: E11.65 Type 2 diabetes mellitus with hyperglycemia (principal); E86.0 Dehydration; B34.9 Viral infection, unspecified; I10 Essential (primary) hypertension; Z79.4 Long term (current) use of insulin; Z87.891 Personal history of nicotine dependence
CPT/HCPCS: 71045; 80053; 81001; 83605; 85025; 87040; 87081; 87086; 87804; 87880; 96360; 96361; 99284; J7030

== ENCOUNTER 2017-06-19 05:49 | Emergency (ER) | payer SELFPAY ==
[~2017-06-19] VITALS: Ht 162.6 cm; Wt 89.0 kg
[2017-06-19 05:52] VITALS: BP 233/117; PULSE 137; RESP 20; TEMP 98.7; O2SAT 100
--- NOTE | 2017-06-19 06:08 | PD ---
HPI Chief Complaint: ENT Complaint Time Seen by Provider: 06:02 Travel History International Travel<30 days: No Contact w/Intl Traveler<30days: No Traveled to known affect area: No History of Present Illness HPI The patient is a 41 year old female who presents to the [facility] emergency department with a history of sore throat and malaise that began on . She came into the ER and was diagnosed with a viral infection after extensive workup for possible sepsis. She then developed a dry cough since yesterday associated with right ear pain. She put peroxide in the right ear and went to bed, when she woke up this morning, she noticed blood on her pillow from her ear. The pain is improved this morning. On review of systems otherwise, the patient denies having any recent fevers, neck pain, chest pain, shortness of breath, abdominal pain, vomiting, diarrhea, urinary symptoms, or neurologic symptoms. Her PCP: Dr. Merchant in [place]. [facility] Past Medical History Narrative Medical The patient's past medical history is significant for diabetes, hypertension. Hx Anticoagulant Therapy: No Blood Disorders: No Heart Rhythm Problems: No Cardiac Catheterization: No Cardiovascular Problems: Yes High Cholesterol: No Chemotherapy: No Congestive Heart Failure: No Cerebrovascular Accident: No Diabetes: Yes Patient Takes Glucophage: No Diminished Hearing: No Gastrointestinal Disorders: No Glaucoma: No Heparin Induced Thrombocytopen: No Hypertension: Yes Insomnia: Yes Musculoskeletal: No Neurologic: No Psychiatric: No Respiratory: No Immunizations Current: Yes Radiation Therapy: No Sickle Cell Disease: No Thyroid Disease: Yes PNEUMOCCOCAL Vaccine (Year): 2 ?: Not : 0 Para: 0 Past Surgical History Narrative Surgical The patient's past surgical history is significant for none. Abdominal Surgery: No AICD: No Arteriovenous Shunt: No Cardiac Surgery: No Coronary Artery Bypass Graft: No Endocrine Surgery: No Eye Surgery: No Genitourinary Surgery: No Gynecologic Surgery: No Joint Replacement: No Neurologic Surgery: No Oral Surgery: Yes Pacemaker: No Thoracic Surgery: No Other Surgery: No Family History Family Myocardial Infarction: Yes (Dad) Family Hypercholesterolemia: Yes Social History Alcohol Use: No Tobacco Use: No (quit 7 years ago) Substance Use: No Allergies-Medications (Allergen,Severity, Reaction): Coded Allergies: No Known Allergies (Verified Allergy, Unknown, 2/26/18) Reported Meds & Prescriptions Reported Meds & Active Scripts Active Amoxicillin 875 Mg Tab 875 Mg PO BID 10 Days Amlodipine (Amlodipine Besylate) 5 Mg Tab 5 Mg PO DAILY Potassium Chloride ER (Potassium Chloride) 20 Meq Tab 20 Meq PO DAILY Fioricet (Kmzffzfmms-Xkzfgvsxoqqqa-Jiialfea) 50-300-40 Mg Cap 1-2 Cap PO Q6H PRN Amlodipine (Amlodipine Besylate) 5 Mg Tab 5 Mg PO DAILY Lisinopril 20 Mg Tab 20 Mg PO BID Reported Novolin 70-30 Inj (Insulin Human Isoph/Insulin Regular) 1,000 Unit/10 Ml Vial 25 Units SQ BID Review of Systems Except as stated in HPI: all other systems reviewed are Neg General / Constitutional: No: Fever Eyes: No: Visual changes HENT: Positive: Sore Throat, Congestion, Ear Discharge, Earache, No: Headaches , Rhinorrhea, Other Cardiovascular: No: Chest Pain or Discomfort Respiratory: Positive: Cough, No: Shortness of Breath Gastrointestinal: No: Nausea, Vomiting, Diarrhea, Abdominal Pain Genitourinary: No: Dysuria Musculoskeletal: No: Pain Skin: No Rash Neurologic: No: Weakness Psychiatric: No: Depression Endocrine: No: Polydipsia Hematologic/Lymphatic: No: Easy Bruising Physical Exam Narrative General: The patient is a well-developed well-nourished female in no acute distress Head and Neck exam: Head is normocephalic atraumatic. Eyes: EOMI, pupils are equal round and reactive to light. Nose: Midline septum with pink mucous membranes Ears: Tympanic membrane on the right is difficult to visualize due to debris in the canal that is blood tinged. This was removed with an ear curette. The patient is noted to have a tympanic membrane rupture at approximately 9 to 10: 00. Patient has some yellow fluid present posterior to the TM. Mouth: Dentition unremarkable. Moist mucus membranes. Posterior oropharynx is not erythematous. No tonsillar hypertrophy. Uvula midline. Airway patent. Neck: No palpable lymphadenopathy. No nuchal rigidity. No thyromegaly. Cardiovascular: Regular rate and rhythm without murmurs, gallops, or rubs. Lungs: Clear to auscultation bilaterally. No wheezes, rhonchi, or rales. Abdomen: Soft, without tenderness to palpation in all 4 quadrants of the abdomen. No guarding, rebound, or rigidity. Normal bowel sounds are audible. No tenderness on palpation of McBurney's point. Negative Choudhary sign. Extremities: No clubbing, cyanosis, or edema. 2+ pulses in all 4 extremities. Back: No spinous process tenderness to palpation. No costovertebral angle tenderness to palpation. Neurologic Exam: Cranial nerves 2-12 were intact on exam. Strength is 5/5 in all 4 extremities. No sensory deficits noted. Skin Exam: No rash noted. Intact skin that is warm and dry. Data Data Last Documented VS Vital Signs Date Time Temp Pulse Resp B/P (MAP) Pulse Ox O2 Delivery O2 Flow Rate FiO2 06/19/17 07:57 06/19/17 07:50 98 16 97 Room Air 06/19/17 05:52 98.7 Orders Orders Lisinopril (Prinivil) (06/19/17 06:45) Amlodipine (Norvasc) (06/19/17 06:45) Ed Discharge Order (06/19/17 07:22) MDM Medical Decision Making Medical Screen Exam Complete: Yes Emergency Medical Condition: Yes Medical Record Reviewed: Yes Differential Diagnosis Otitis externa, versus tympanic membrane rupture, versus otitis media, versus scratch in the external auditory canal Narrative Course During the course of the patient's emergency department visit, the patient's history, examination, and differential diagnosis were reviewed with the patient. The patient was placed on a director of cardiac cath lab with oximetry and frequent blood pressure monitoring. The patient had an initial blood pressure with a systolic of 233. The patient reports that she did not take her blood pressure medication this morning as she immediately came when she noticed that she had bleeding from her right ear. The patient is asymptomatic with her elevated blood pressure, denying any headache, neck pain, chest pain, shortness of breath. The patient will be given her usual blood pressure medications. Review of the record reveals that the patient was recently in the emergency department and had an extensive workup done at that time to evaluate for possible underlying sepsis which was negative and the patient was discharged home with a diagnosis of a viral illness. Blood cultures 2 from that visit showed no growth. The patient was initially provided Norvasc 5 mg p.o. 1, lisinopril 20 mg p.o. Prior to the medications being provided her blood pressure had already improved to 181/90. Additionally, the patient reports that she ran out of the Norvasc and has not gotten another prescription for it since then. The patient's examination is remarkable for tympanic membrane rupture on the right. The patient will be discharged home with a prescription for antibiotic. The patient was instructed to avoid getting her ear wet. She is instructed to use earplugs when showering. The patient is instructed regarding the importance of following up with an research and development scientist. She is given the name of the near nose and throat specialist on-call, Dr. Camacho today for follow-up. The patient will be discharged home with a prescription for amoxicillin and a refill of her Norvasc. The patient is resting comfortably and feels better, is alert and in no distress. The patient's results and examination findings were discussed with the patient. The repeat examination is unremarkable and benign. The history, exam, diagnostic testing, and current condition do not suggest any significant pathology to warrant further testing, continued ED treatment, admission, or surgical evaluation at this point. The vital signs have been stable. The patient does not have uncontrollable pain, intractable vomiting, or other significant symptoms. The patient's condition is stable and appropriate for discharge. The patient will pursue further outpatient evaluation with a primary care physician or other designated or consulting physician as indicated in the discharge instructions. The patient expressed understanding and was agreeable with this plan. Diagnosis Primary Impression: Otitis media Qualified Codes: H66.011 - Acute suppurative otitis media with spontaneous rupture of ear drum, right ear Additional Impression: Hypertension Referrals: Ranjan Camacho MD call for appointment Primary Care Physician 1 week Patient Instructions: Ear Infection (ED), General Instructions, Hypertension ( ED), Ruptured Eardrum (ED) Med/Other Pt SpecificInfo: Prescription(s) given Scripts Amoxicillin (Amoxicillin) 875 Mg Tab 875 MG PO BID for Infection for 10 Days, #20 TAB 0 Refills Prov: Carmen Calderon MD 06/19/17 Amlodipine (Amlodipine) 5 Mg Tab 5 MG PO DAILY for Blood Pressure Management, #30 TAB 0 Refills Prov: Carmen Calderon MD 06/19/17 Disposition: 01 DISCHARGE HOME Condition: Stable Carmen Calderon MD Jun 19, 2017 06:08
[2017-06-19] MEDS ORDERED: LISINOPRIL 20 MG TAB PO ONE (06:45)
[2017-06-19] MEDS ORDERED: amLODIPine BESYLATE 5 MG TAB PO ONE (06:45)
[2017-06-19 07:02] VITALS: BP 181/90; PULSE 109; RESP 16; O2SAT 96
[2017-06-19] MEDS ORDERED: AMLO5TAB2 PO (07:22)
[2017-06-19] MEDS ORDERED: AMOX875T PO (07:22)
[2017-06-19 07:50] VITALS: BP 154/78; PULSE 98; RESP 16; O2SAT 97
== END 2017-06-19 07:58 | disposition home or self-care (01) ==
LOC: NEPE 05:49
DX: H66.011 Acute suppurative otitis media with spontaneous rupture of ear drum, right ear (principal); I10 Essential (primary) hypertension; E11.9 Type 2 diabetes mellitus without complications; Z79.4 Long term (current) use of insulin; Z87.891 Personal history of nicotine dependence
CPT/HCPCS: 99283

== ENCOUNTER 2017-07-20 20:04 | Emergency (ER) | payer SELFPAY ==
[~2017-07-20] VITALS: Ht 162.6 cm; Wt 100.6 kg
[~2017-07-20 20:04] MED LIST changes: +AMOX875T PO
[2017-07-20 20:27] VITALS: BP 224/96; PULSE 95; RESP 18; TEMP 97.6; O2SAT 100
[2017-07-20] MEDS ORDERED: NAPR500T2 PO (20:58)
[2017-07-20] MEDS ORDERED: AUGM875T3 PO (20:58)
--- NOTE | 2017-07-20 20:58 | PD ---
HPI Chief Complaint: ENT Complaint Time Seen by Provider: 20:44 Travel History International Travel<30 days: No Contact w/Intl Traveler<30days: No Traveled to known affect area: No History of Present Illness HPI Is a 41-year-old man presents emerged from complaining of ongoing right ear pain , subjective fevers, fatigue and lethargy, feeling poorly. To have elevated blood pressure, consistent with previous admissions, states she is due for her home blood pressure medications. States she was recently treated in the emergency department found to have a ruptured eardrum and otitis media. Treated with amoxicillin but feels like she has not improved. Still in the process of following up with Dr. Camacho. No shortness of breath or chest pain. Has her blood pressure medications. History Past Medical History Narrative Medical Diabetes Hypertension PNEUMOCCOCAL Vaccine (Year): 2 LMP: 07/16/17 : 0 Para: 0 Social History Alcohol Use: No Tobacco Use: No (quit 7 years ago) Allergies-Medications (Allergen,Severity, Reaction): Coded Allergies: No Known Allergies (Verified Allergy, Unknown, 06/19/17) Reported Meds & Prescriptions Reported Meds & Active Scripts Active Amoxicillin 875 Mg Tab 875 Mg PO BID 10 Days Amlodipine (Amlodipine Besylate) 5 Mg Tab 5 Mg PO DAILY Potassium Chloride ER (Potassium Chloride) 20 Meq Tab 20 Meq PO DAILY Fioricet (Rkzuyfvxev-Ajjslfryyfrid-Yobhitld) 50-300-40 Mg Cap 1-2 Cap PO Q6H PRN Amlodipine (Amlodipine Besylate) 5 Mg Tab 5 Mg PO DAILY Lisinopril 20 Mg Tab 20 Mg PO BID Reported Novolin 70-30 Inj (Insulin Human Isoph/Insulin Regular) 1,000 Unit/10 Ml Vial 25 Units SQ BID Review of Systems Except as stated in HPI: all other systems reviewed are Neg Physical Exam Narrative GENERAL: 41-year-old woman, no acute distress. SKIN: Focused skin assessment warm/dry. HEAD: Atraumatic. Normocephalic. EYES: Pupils equal and round. No scleral icterus. No injection or drainage. ENT: No nasal bleeding or discharge. Mucous membranes pink and moist. Left TM is normal. Right TM is a little bit of crusting and sort of an inferior semilunar position inferior-anteriorly near but not necessarily on the TM. I do not see any definite rupture. The scaling seems a little bit in front of the TM itself but could represent scaling or scabbing over a perforation. I do not see any definite perforation at this time. NECK: Trachea midline. No JVD. No adenopathy. CARDIOVASCULAR: Regular rate and rhythm. No murmur appreciated. RESPIRATORY: No accessory muscle use. Clear to auscultation. Breath sounds equal bilaterally. GASTROINTESTINAL: Abdomen soft, non-tender, nondistended. Hepatic and splenic margins not palpable. MUSCULOSKELETAL: No obvious deformities. No edema. NEUROLOGICAL: Awake and alert. No obvious cranial nerve deficits. Motor grossly within normal limits. Normal speech. Data Data Last Documented VS Vital Signs Date Time Temp Pulse Resp B/P (MAP) Pulse Ox O2 Delivery O2 Flow Rate FiO2 07/20/17 20:27 97.6 95 18 224/96 (138) 100 MDM Medical Decision Making Medical Screen Exam Complete: Yes Emergency Medical Condition: Yes Differential Diagnosis Otitis media, tonsillitis, infection, URI, other Narrative Course Medical decision making 41-year-old with hypertension diabetes, complaining of worsening ear pain fevers chills and fatigue. Looks well. Blood pressure is elevated. She is due for home blood pressure medications which she has. I recommend she take these. Discussed utility of a second course of antibiotics. She looks well. I do not see any obvious infection. She does have very large tonsils. She may still have a perforation of the eardrum although I do not appreciate that definitively on exam. She is follow-up with ENT. This is discussed with her. After discussion, she would like to try a second course of stronger antibiotics. Will do Augmentin, naproxen for pain, outpatient follow-up. Diagnosis Primary Impression: Ear pain, right Additional Instructions: The source of your ear pain is unclear. We will try a second course of antibiotics to see if it could be related to infection in this area. I recommend that he follow-up with Dr. Camacho as previously referred. Take Naprosyn as needed for pain. Return to the emergency department for any new or worsening symptoms. Take blood pressure medicine as prescribed. Med/Other Pt SpecificInfo: Prescription(s) given Scripts Naproxen (Naproxen) 500 Mg Tab 500 MG PO BID, #28 TAB 0 Refills Prov: Ricardo Mckinney MD 07/20/17 Amoxicillin-Clavulanate (Augmentin) 875-125 Mg Tab 1 TAB PO BID for Infection for 7 Days, #14 TAB 0 Refills Prov: Ricardo Mckinney MD 07/20/17 Disposition: 01 DISCHARGE HOME Condition: Stable Ricardo Mckinney MD Jul 20, 2017 20:58
== END 2017-07-20 21:21 | disposition home or self-care (01) ==
LOC: NEPE 20:04
DX: H92.01 Otalgia, right ear (principal); I10 Essential (primary) hypertension; E11.9 Type 2 diabetes mellitus without complications; R53.83 Other fatigue; Z87.891 Personal history of nicotine dependence; Z79.4 Long term (current) use of insulin; Z79.899 Other long term (current) drug therapy
CPT/HCPCS: 99283

== ENCOUNTER 2017-08-25 06:31 | Emergency (ER) | payer SELFPAY ==
[~2017-08-25] VITALS: Ht 162.6 cm; Wt 98.0 kg
[~2017-08-25 06:31] MED LIST changes: +AUGM875T3 PO; +NAPR500T2 PO
[2017-08-25 06:34] VITALS: BP 235/109; PULSE 115; TEMP 98.3; O2SAT 97
[2017-08-25] MEDS ORDERED: SODIUM CHLOR 0.9% 1000 ML INJ 1,000 ML IV ONE (07:00)
[2017-08-25 07:12] LABS: AUTOMATED NEUTROPHIL # 7.6 TH/MM3 (1.8-7.7); BASOPHIL # 0.1 TH/MM3 (0-0.2); BASOPHIL % 1.2 % (0.0-2.0); EOSINOPHIL # 0.7 TH/MM3 (0-0.4); EOSINOPHIL % 5.9 % (0.0-4.0); HEMATOCRIT 49.5 % (35.0-46.0); HEMOGLOBIN 17.2 GM/DL (11.6-15.3); LYMPH % 22.3 % (9.0-44.0); LYMPHOCYTE # 2.6 TH/MM3 (1.0-4.8); MEAN CELL VOLUME 86.8 FL (80.0-100.0); MEAN CORPUSCULAR HEMOGLOBIN 30.1 PG (27.0-34.0); MEAN CORPUSCULAR HGB CONC 34.7 % (32.0-36.0); MEAN PLATELET VOLUME 10.1 FL (7.0-11.0); MONOCYTE # 0.7 TH/MM3 (0-0.9); NEUT % 64.6 % (16.0-70.0); PLATELET COUNT 285 TH/MM3 (150-450); RED BLOOD COUNT 5.71 MIL/MM3 (4.00-5.30); RED CELL DISTRIBUTION WIDTH 14.1 % (11.6-17.2); WHITE BLOOD COUNT 11.7 TH/MM3 (4.0-11.0)
--- NOTE | 2017-08-25 07:26 | PD ---
HPI Chief Complaint: Diabetic Time Seen by Provider: 07:21 Travel History International Travel<30 days: No Contact w/Intl Traveler<30days: No Traveled to known affect area: No History of Present Illness HPI 41-year-old female patient with history of diabetes, presents to the ER today because she states that over the last week she has been feeling more tired, and started having a rash all over her body. It is itchy. She denies any new bedding, new cosmetics, or new medications. She does not know of any other sick contacts. She denies any fevers, but has been coughing. She denies any sore throat or any other symptoms. She has never had this problem before. Her sugar was 400 this morning but she has not yet taken her medications. Modifying Factors: None Associated Signs & Symptoms: Not feeling well, elevated blood sugar, coughing, rash Risk Factors: Diabetic PFSH Past Medical History Hx Anticoagulant Therapy: No Blood Disorders: No Heart Rhythm Problems: No Cardiac Catheterization: No Cardiovascular Problems: Yes (HTN) High Cholesterol: No Chemotherapy: No Congestive Heart Failure: No Cerebrovascular Accident: No Diabetes: Yes Patient Takes Glucophage: No Diminished Hearing: No Gastrointestinal Disorders: No Glaucoma: No Heparin Induced Thrombocytopen: No Hypertension: Yes Insomnia: Yes Musculoskeletal: No Neurologic: No Psychiatric: No Respiratory: No Immunizations Current: Yes Radiation Therapy: No Sickle Cell Disease: No Thyroid Disease: Yes PNEUMOCCOCAL Vaccine (Year): 2 ?: Not : 0 Para: 0 Past Surgical History Surgical History: No Previous Surgery Abdominal Surgery: No AICD: No Arteriovenous Shunt: No Cardiac Surgery: No Coronary Artery Bypass Graft: No Endocrine Surgery: No Eye Surgery: No Genitourinary Surgery: No Gynecologic Surgery: No Joint Replacement: No Neurologic Surgery: No Oral Surgery: Yes Pacemaker: No Thoracic Surgery: No Other Surgery: No Family History Family Myocardial Infarction: Yes (Dad) Family Hypercholesterolemia: Yes Social History Alcohol Use: No Tobacco Use: No (quit 7 years ago) Substance Use: No Allergies-Medications (Allergen,Severity, Reaction): Coded Allergies: No Known Allergies (Verified Allergy, Unknown, 08/25/17) Reported Meds & Prescriptions Reported Meds & Active Scripts Active Naproxen 500 Mg Tab 500 Mg PO BID Potassium Chloride ER (Potassium Chloride) 20 Meq Tab 20 Meq PO DAILY Fioricet (Zzwaclminb-Tskoxfapccvas-Imwqmwdh) 50-300-40 Mg Cap 1-2 Cap PO Q6H PRN Amlodipine (Amlodipine Besylate) 5 Mg Tab 5 Mg PO DAILY Lisinopril 20 Mg Tab 20 Mg PO BID Reported Novolin 70-30 Inj (Insulin Human Isoph/Insulin Regular) 1,000 Unit/10 Ml Vial 25 Units SQ BID Review of Systems Except as stated in HPI: all other systems reviewed are Neg Physical Exam Narrative GENERAL: Well-developed middle-age female patient currently in mild distress. Awake and oriented 3. SKIN: Focused skin assessment warm/dry. There is a diffuse erythematous fine papular rash notable on her entire body. Not involving the palms or soles of the feet. HEAD: Atraumatic. Normocephalic. EYES: Pupils equal and round. No scleral icterus. No injection or drainage. ENT: No nasal bleeding or discharge. Mucous membranes pink and moist. NECK: Trachea midline. No JVD. Supple. CARDIOVASCULAR: Regular rate and rhythm. No murmur appreciated. RESPIRATORY: No accessory muscle use. Clear to auscultation. Breath sounds equal bilaterally. GASTROINTESTINAL: Abdomen soft, non-tender, nondistended. Hepatic and splenic margins not palpable. MUSCULOSKELETAL: No obvious deformities. No clubbing. No cyanosis. No edema. NEUROLOGICAL: Awake and alert. No obvious cranial nerve deficits. Motor grossly within normal limits. Normal speech. PSYCHIATRIC: Appropriate mood and affect; insight and judgment normal. Data Data Last Documented VS Vital Signs Date Time Temp Pulse Resp B/P (MAP) Pulse Ox O2 Delivery O2 Flow Rate FiO2 08/25/17 08:41 98 17 174/89 (117) 97 Room Air 08/25/17 06:34 98.3 Orders Orders Sodium Chlor 0.9% 1000 Ml Inj (Ns 1000 M (08/25/17 07:00) Complete Blood Count With Diff (08/25/17 06:47) Comprehensive Metabolic Panel (08/25/17 06:47) Urinalysis - C+S If Indicated (08/25/17 06:47) Diphenhydramine Inj (Benadryl Inj) (08/25/17 07:30) Group A Rapid Strep Screen (08/25/17 07:21) Strep Culture (Group A) (08/25/17 07:40) Potassium Chloride Eff (K-Lyte Cl Eff) (08/25/17 08:30) Insulin Human Regular Inj (Novolin R Inj (08/25/17 08:30) Ed Discharge Order (08/25/17 09:20) Labs Laboratory Tests Test 08/25/17 06:55 08/25/17 07:40 08/25/17 07:50 White Blood Count 11.7 TH/MM3 Red Blood Count 5.71 MIL/MM3 Hemoglobin 17.2 GM/DL Hematocrit 49.5 % Mean Corpuscular Volume 86.8 FL Mean Corpuscular Hemoglobin 30.1 PG Mean Corpuscular Hemoglobin Concent 34.7 % Red Cell Distribution Width 14.1 % Platelet Count 285 TH/MM3 Mean Platelet Volume 10.1 FL Neutrophils (%) (Auto) 64.6 % Lymphocytes (%) (Auto) 22.3 % Monocytes (%) (Auto) 6.0 % Eosinophils (%) (Auto) 5.9 % Basophils (%) (Auto) 1.2 % Neutrophils # (Auto) 7.6 TH/MM3 Lymphocytes # (Auto) 2.6 TH/MM3 Monocytes # (Auto) 0.7 TH/MM3 Eosinophils # (Auto) 0.7 TH/MM3 Basophils # (Auto) 0.1 TH/MM3 CBC Comment DIFF FINAL Differential Comment Urine Color LIGHT-YELLOW Urine Turbidity CLEAR Urine pH 7.0 Urine Specific [place] 1.012 Urine Protein NEG mg/dL Urine Glucose (UA) 1000 mg/dL Urine Ketones 10 mg/dL Urine Occult Blood NEG Urine Nitrite NEG Urine Bilirubin NEG Urine Urobilinogen LESS THAN 2.0 MG/DL Urine Leukocyte Esterase NEG Urine RBC LESS THAN 1 /hpf Urine WBC LESS THAN 1 /hpf Urine Squamous Epithelial Cells 1 /hpf Microscopic Urinalysis Comment CULT NOT INDICATED Blood Urea Nitrogen 4 MG/DL Creatinine 0.67 MG/DL Random Glucose 307 MG/DL Total Protein 7.2 GM/DL Albumin 3.2 GM/DL Calcium Level 7.7 MG/DL Alkaline Phosphatase 87 U/L Aspartate Amino Transf (AST/SGOT) 21 U/L Alanine Aminotransferase (ALT/SGPT) 17 U/L Total Bilirubin 0.5 MG/DL Sodium Level 138 MEQ/L Potassium Level 3.4 MEQ/L Chloride Level 100 MEQ/L Carbon Dioxide Level 25.6 MEQ/L Anion Gap 12 MEQ/L Estimat Glomerular Filtration Rate 97 ML/MIN [facility] Medical Decision Making Medical Screen Exam Complete: Yes Emergency Medical Condition: Yes Medical Record Reviewed: Yes Interpretation(s) Laboratory Tests Test 08/25/17 06:55 08/25/17 07:40 08/25/17 07:50 White Blood Count 11.7 TH/MM3 (4.0-11.0) Red Blood Count 5.71 MIL/MM3 (4.00-5.30) Hemoglobin 17.2 GM/DL (11.6-15.3) Hematocrit 49.5 % (35.0-46.0) Eosinophils (%) (Auto) 5.9 % (0.0-4.0) Eosinophils # (Auto) 0.7 TH/MM3 (0-0.4) Urine Glucose (UA) 1000 mg/dL (NEG) Urine Ketones 10 mg/dL (NEG) Blood Urea Nitrogen 4 MG/DL (7-18) Random Glucose 307 MG/DL (74-106) Albumin 3.2 GM/DL (3.4-5.0) Calcium Level 7.7 MG/DL (8.5-10.1) Potassium Level 3.4 MEQ/L (3.5-5.1) Differential Diagnosis Metabolic issues versus scarlatiniform rash versus allergic reaction versus viral rash Narrative Course Rapid strep is negative. It is unclear what the cause of her rash is at this point. However, she shows no signs of angioedema. Considering to look at the rash, it is quite possible that it is scabies although the patient states that she has not had any new bedding or slept anywhere new. Her blood sugar was mildly elevated, and her blood pressure was elevated as well, patient had not taken her medications this morning. She was given insulin with improvement of blood sugars and her blood pressure came down on its own. At this point, my plan would be to release her with treatment for itching and scabies and have her follow-up closely with her primary care doctor. Return for worsening in symptoms as needed. The plan has been discussed with her and she states understanding. Diagnosis Primary Impression: Hypertension Additional Impressions: DM (diabetes mellitus) Rash Med/Other Pt SpecificInfo: Prescription(s) given Scripts Permethrin Topical (Elimite Topical) 5% Cream 1 APPLIC TOPICAL ONCE for Scabies, #1 TUBE 0 Refills Prov: Jadon Sibley MD 08/25/17 Prednisone (Prednisone) 50 Mg Tab 50 MG PO DAILY for 3 Days, #3 TAB 0 Refills Prov: Jadon Sibley MD 08/25/17 Diphenhydramine (Diphenhydramine) 25 Mg Tab 25 MG PO Q6H Y for ALLERGIES, #20 TAB 0 Refills Prov: Jadon Sibley MD 08/25/17 Disposition: 01 DISCHARGE HOME Condition: Stable Jadon Sibley MD August 25, 2017 07:26
[2017-08-25] MEDS ORDERED: diphenhydrAMINE HCL 50 MG/ML VIAL IV PUSH ONE (07:30)
[2017-08-25 07:31] LABS: ALKALINE PHOSPHATASE 87 U/L (45-117); TOTAL BILIRUBIN ADULT 0.5 MG/DL (0.2-1.0); TOTAL PROTEIN 7.2 GM/DL (6.4-8.2)
[2017-08-25 07:57] LABS: BILIRUBIN, URINE NEG (NEG); BLOOD, URINE NEG (NEG); GLUCOSE,URINE 1000 mg/dL (NEG); KETONE, URINE 10 mg/dL (NEG); NITRITE,URINE NEG (NEG); SQUAMOUS EPITHELIAL CELL URINE 1 /hpf (0-5); URINE COLOR LIGHT-YELLOW (YELLW/STRAW); URINE LEUKOCYTE ESTERASE NEG (NEG)
[2017-08-25 08:23] LABS: ALBUMIN 3.2 GM/DL (3.4-5.0); ALT (GPT) 17 U/L (10-53); AST (GOT) 21 U/L (15-37); BICARBONATE 25.6 MEQ/L (21.0-32.0); BLOOD UREA NITROGEN 4 MG/DL (7-18); CALCIUM 7.7 MG/DL (8.5-10.1); CHLORIDE 100 MEQ/L (98-107); CREATININE 0.67 MG/DL (0.50-1.00); GLOMERULAR FILTRATION RATE 97 ML/MIN (>89); GLUCOSE,RANDOM 307 MG/DL (74-106); SODIUM (NA) 138 MEQ/L (136-145)
[2017-08-25] MEDS ORDERED: POTASSIUM CHLORIDE 25 MEQ EFFERVESCENT TAB PO ONE (08:30)
[2017-08-25] MEDS ORDERED: INSULIN HUMAN REGULAR 1,000 UNITS/10 ML VIAL IV PUSH ONE (08:30)
[2017-08-25 08:41] VITALS: BP 174/89; PULSE 98; RESP 17; O2SAT 97
[2017-08-25] MEDS ORDERED: DIPH25TA2 PO (09:25)
[2017-08-25] MEDS ORDERED: PERM5CRE11 TOPICAL (09:25)
[2017-08-25] MEDS ORDERED: PRED50 PO (09:25)
[2017-08-25 09:39] VITALS: BP 174/89
== END 2017-08-25 09:41 | disposition home or self-care (01) ==
LOC: NEPC 06:31
DX: R21 Rash and other nonspecific skin eruption (principal); I10 Essential (primary) hypertension; E11.9 Type 2 diabetes mellitus without complications; G47.00 Insomnia, unspecified; E07.9 Disorder of thyroid, unspecified; Z87.891 Personal history of nicotine dependence; Z79.4 Long term (current) use of insulin; Z79.899 Other long term (current) drug therapy
CPT/HCPCS: 80053; 81001; 85025; 87081; 87880; 96361; 96374; 96375; 99284; J1200; J1815; J7030

== ENCOUNTER 2017-09-27 20:18 | Emergency (ER) | payer SELFPAY ==
[~2017-09-27] VITALS: Ht 165.1 cm; Wt 92.0 kg
[~2017-09-27 20:18] MED LIST changes: -AMOX875T PO; -AUGM875T3 PO; +DIPH25TA2 PO; +PERM5CRE11 TOPICAL; +PRED50 PO
[2017-09-27 20:45] VITALS: BP 228/101; PULSE 99; RESP 18; TEMP 98.5; O2SAT 97
--- NOTE | 2017-09-27 21:56 | PD ---
HPI Chief Complaint: ENT Complaint Time Seen by Provider: 21:48 Travel History International Travel<30 days: No Contact w/Intl Traveler<30days: No Traveled to known affect area: No History of Present Illness HPI This is a 41-year-old female with history of hypertension and diabetes. She presents for evaluation of dental pain. Symptoms started 2-3 days ago. Pain is a throbbing pain in the left mandibular third molar which radiates into the left ear, constant, no aggravating or relieving factors. Denies fevers or chills, chest pain shortness of breath, blurred vision, headache, nausea or vomiting. She is noted to be hypertensive in triage, she is currently taking lisinopril 20 mg twice a day but she reports that typically her blood pressure still elevated over systolic 140 on a "good day." She does not currently have a primary care physician. No other complaints. PFSH Past Medical History Hx Anticoagulant Therapy: No Blood Disorders: No Heart Rhythm Problems: No Cardiac Catheterization: No Cardiovascular Problems: Yes (HTN) High Cholesterol: No Chemotherapy: No Congestive Heart Failure: No Cerebrovascular Accident: No Diabetes: Yes Diminished Hearing: No Gastrointestinal Disorders: No Glaucoma: No Heparin Induced Thrombocytopen: No Hypertension: Yes Insomnia: Yes Musculoskeletal: No Neurologic: No Psychiatric: No Respiratory: No Immunizations Current: Yes Radiation Therapy: No Sickle Cell Disease: No Thyroid Disease: Yes PNEUMOCCOCAL Vaccine (Year): 2 : 0 Para: 0 Past Surgical History Abdominal Surgery: No AICD: No Arteriovenous Shunt: No Cardiac Surgery: No Coronary Artery Bypass Graft: No Endocrine Surgery: No Eye Surgery: No Genitourinary Surgery: No Gynecologic Surgery: No Joint Replacement: No Neurologic Surgery: No Oral Surgery: Yes Pacemaker: No Thoracic Surgery: No Other Surgery: No Family History Family Hypercholesterolemia: Yes Social History Alcohol Use: No Tobacco Use: No (quit 7 years ago) Substance Use: No Allergies-Medications (Allergen,Severity, Reaction): Coded Allergies: No Known Allergies (Verified Allergy, Unknown, 09/27/17) Reported Meds & Prescriptions Reported Meds & Active Scripts Active Penicillin V Potassium 500 Mg Tab 500 Mg PO Q8H 7 Days Magic Mouthwash Adult Liq (Multi-Ingredient Mouthwash/Gargle) 120 Ml Susp 10 Ml SWISH-SPIT ACHS Each 5mL contains: Nystatin 200,000units, Diphenhydramine 4.25mg, Viscous Lidocaine 10mg, Guillermo syrup 0.8 mL Hydrochlorothiazide 12.5 Mg Tab 12.5 Mg PO BID Elimite Topical (Permethrin) 5% Cream 1 Applic TOPICAL ONCE Prednisone 50 Mg Tab 50 Mg PO DAILY 3 Days Diphenhydramine (Diphenhydramine HCl) 25 Mg Tab 25 Mg PO Q6H PRN Naproxen 500 Mg Tab 500 Mg PO BID Potassium Chloride ER (Potassium Chloride) 20 Meq Tab 20 Meq PO DAILY Fioricet (Ilkgcibjeg-Jjnkvkkphongw-Ecnybdof) 50-300-40 Mg Cap 1-2 Cap PO Q6H PRN Amlodipine (Amlodipine Besylate) 5 Mg Tab 5 Mg PO DAILY Lisinopril 20 Mg Tab 20 Mg PO BID Reported Novolin 70-30 Inj (Insulin Human Isoph/Insulin Regular) 1,000 Unit/10 Ml Vial 25 Units SQ BID Review of Systems Except as stated in HPI: all other systems reviewed are Neg Physical Exam Narrative GENERAL: Well-developed well-nourished female no acute distress SKIN: Warm and dry. There is a subcutaneous skin lesion on the left angle of the mandible region which the patient reports is chronic. This is nontender. There is no erythema or induration of the skin. HEAD: Atraumatic. Normocephalic. EYES: Pupils equal and round. No scleral icterus. No injection or drainage. ENT: No nasal bleeding or discharge. Mucous membranes pink and moist. The patient has multiple areas of dental decay. The left mandibular third molar is decayed and tender to palpation. There is no sublingual edema, no trismus. Tympanic movements appear normal without erythema or air-fluid level. There is no mastoid tenderness. NECK: Trachea midline. No JVD. CARDIOVASCULAR: Regular rate and rhythm. No murmur appreciated. RESPIRATORY: No accessory muscle use. Clear to auscultation. Breath sounds equal bilaterally. GASTROINTESTINAL: Abdomen soft, non-tender, nondistended. Hepatic and splenic margins not palpable. MUSCULOSKELETAL: No obvious deformities. No clubbing. No cyanosis. No edema. NEUROLOGICAL: Awake and alert. No obvious cranial nerve deficits. Motor grossly within normal limits. Normal speech. Data Data Last Documented VS Vital Signs Date Time Temp Pulse Resp B/P (MAP) Pulse Ox O2 Delivery O2 Flow Rate FiO2 6/6/18 22:29 180/81 (114) 09/27/17 20:45 98.5 99 18 97 Orders Orders Complete Blood Count With Diff (09/27/17 21:54) Basic Metabolic Panel (Bmp) (09/27/17 21:54) Labetalol Inj (Trandate Inj) (09/27/17 22:00) Iv Access Insert/Monitor (09/27/17 21:54) Ecg Monitoring (09/27/17 21:54) Potassium Chloride (Kcl) (09/27/17 23:00) Ed Discharge Order (09/27/17 22:50) Labs Laboratory Tests Test 09/27/17 22:10 White Blood Count 12.2 TH/MM3 Red Blood Count 4.93 MIL/MM3 Hemoglobin 15.2 GM/DL Hematocrit 43.2 % Mean Corpuscular Volume 87.5 FL Mean Corpuscular Hemoglobin 30.8 PG Mean Corpuscular Hemoglobin Concent 35.1 % Red Cell Distribution Width 13.7 % Platelet Count 249 TH/MM3 Mean Platelet Volume 10.7 FL Neutrophils (%) (Auto) 58.5 % Lymphocytes (%) (Auto) 29.6 % Monocytes (%) (Auto) 6.1 % Eosinophils (%) (Auto) 5.6 % Basophils (%) (Auto) 0.2 % Neutrophils # (Auto) 7.1 TH/MM3 Lymphocytes # (Auto) 3.6 TH/MM3 Monocytes # (Auto) 0.7 TH/MM3 Eosinophils # (Auto) 0.7 TH/MM3 Basophils # (Auto) 0.0 TH/MM3 CBC Comment DIFF FINAL Differential Comment Blood Urea Nitrogen 5 MG/DL Creatinine 0.65 MG/DL Random Glucose 307 MG/DL Calcium Level 8.5 MG/DL Sodium Level 138 MEQ/L Potassium Level 3.1 MEQ/L Chloride Level 102 MEQ/L Carbon Dioxide Level 23.5 MEQ/L Anion Gap 13 MEQ/L Estimat Glomerular Filtration Rate 100 ML/MIN [facility] Medical Decision Making Medical Screen Exam Complete: Yes Emergency Medical Condition: Yes Medical Record Reviewed: Yes Differential Diagnosis Dental caries, pulpitis, pericoronitis, periodontal abscess, otitis media Narrative Course Physical examination is consistent with dental caries. She is markedly hypertensive, she is asymptomatic in regards to her hypertension. Plan is for basic lab work, she will be given a dose of IV labetalol. Blood pressure improved after the administration of labetalol. Her lab work is been reviewed. Her potassium level is 3.1, oral potassium chloride has been administered. At this point time the plan would be to discharge her with a short course of hydrochlorothiazide use in conjunction with the lisinopril. She will be given prescriptions for penicillin and Magic mouthwash. Encouraged her to keep a journal for blood pressure readings and to follow-up with a primary care physician. Diagnosis Primary Impression: Hypertension Additional Impressions: Dental caries Hypokalemia Referrals: [facility] Dentist Additional Instructions: Medication as prescribed. As discussed, monitor your blood pressure on a regular basis and keep a journal of these readings. Follow-up with a dentist as well as a primary care physician and return for any emergent medical conditions. Med/Other Pt SpecificInfo: Prescription(s) given Scripts Penicillin V Potassium (Penicillin V Potassium) 500 Mg Tab 500 MG PO Q8H for Infection for 7 Days, #21 TAB 0 Refills Prov: Veronica Dominguez DO 09/27/17 Obrudtdh-Hlfanolbgohepfj-Rqhhmmrnb Liq (Magic Mouthwash Adult Liq) 120 Ml Susp 10 ML SWISH-SPIT ACHS for Mouth sores, #120 ML 0 Refills Each 5mL contains: Nystatin 200,000units, Diphenhydramine 4.25mg, Viscous Lidocaine 10mg, Guillermo syrup 0.8 mL Prov: Veronica Dominguez DO 09/27/17 Hydrochlorothiazide (Hydrochlorothiazide) 12.5 Mg Tab 12.5 MG PO BID, #60 TAB 0 Refills Prov: Veronica Dominguez DO 09/27/17 Disposition: 01 DISCHARGE HOME Condition: Stable Oracio Lauren Sep 27, 2017 21:56
[2017-09-27] MEDS ORDERED: LABETALOL HCL 100 MG/20 ML VIAL IV PUSH ONE (22:00)
[2017-09-27 22:22] LABS: AUTOMATED NEUTROPHIL # 7.1 TH/MM3 (1.8-7.7); BASOPHIL % 0.2 % (0.0-2.0); EOSINOPHIL # 0.7 TH/MM3 (0-0.4); EOSINOPHIL % 5.6 % (0.0-4.0); HEMATOCRIT 43.2 % (35.0-46.0); HEMOGLOBIN 15.2 GM/DL (11.6-15.3); LYMPH % 29.6 % (9.0-44.0); LYMPHOCYTE # 3.6 TH/MM3 (1.0-4.8); MEAN CELL VOLUME 87.5 FL (80.0-100.0); MEAN CORPUSCULAR HEMOGLOBIN 30.8 PG (27.0-34.0); MEAN CORPUSCULAR HGB CONC 35.1 % (32.0-36.0); MEAN PLATELET VOLUME 10.7 FL (7.0-11.0); MONO % 6.1 % (0.0-8.0); MONOCYTE # 0.7 TH/MM3 (0-0.9); NEUT % 58.5 % (16.0-70.0); PLATELET COUNT 249 TH/MM3 (150-450); RED BLOOD COUNT 4.93 MIL/MM3 (4.00-5.30); RED CELL DISTRIBUTION WIDTH 13.7 % (11.6-17.2); WHITE BLOOD COUNT 12.2 TH/MM3 (4.0-11.0)
[2017-09-27 22:29] VITALS: BP 180/81
[2017-09-27] MEDS ORDERED: HYDR12.56 PO (22:43)
[2017-09-27] MEDS ORDERED: MAGICADU2 SWISH-SPIT (22:43)
[2017-09-27] MEDS ORDERED: PENI500T PO (22:43)
[2017-09-27 22:47] LABS: BICARBONATE 23.5 MEQ/L (21.0-32.0); CALCIUM 8.5 MG/DL (8.5-10.1); CREATININE 0.65 MG/DL (0.50-1.00)
[2017-09-27] MEDS ORDERED: POTASSIUM CHLORIDE 20 MEQ CONTROLLED RELEASE TAB PO ONE (23:00)
== END 2017-09-27 23:07 | disposition home or self-care (01) ==
LOC: NEPD 20:18
DX: I10 Essential (primary) hypertension (principal); K02.9 Dental caries, unspecified; E87.6 Hypokalemia; E11.9 Type 2 diabetes mellitus without complications; Z79.4 Long term (current) use of insulin; Z87.891 Personal history of nicotine dependence
CPT/HCPCS: 80048; 85025; 96374